=== PATIENT | male | born 1945 | race Hispanic/Latino ===

== ENCOUNTER 2017-02-07 13:29 | Inpatient (IN) | payer OTHER, MEDICARE ==
[2017-02-07 13:32] VITALS: BMI 30.4
--- NOTE | 2017-02-07 14:44 | RAD ---
HISTORY: Routine med exam COMPARISON: None available. TECHNIQUE: Chest, one view. FINDINGS: LUNGS: Right peritracheal opacity of unclear significance; considerations include tortuous vasculature however alternatives including adenopathy or goiter are not excluded. No focal consolidation. Please note that chest x-ray has limited sensitivity for the detection of pulmonary masses. PLEURA: No significant pleural effusion identified. No definite pneumothorax . CARDIOVASCULAR: Borderline cardiomegaly. OSSEOUS STRUCTURES: Degenerative changes. VISUALIZED UPPER ABDOMEN: Unremarkable. OTHER FINDINGS: None. IMPRESSION: Right peritracheal opacity of unclear significance; considerations include tortuous vasculature however alternatives including adenopathy or goiter are not excluded. No focal consolidation.
[2017-02-07 14:45] LABS: BASO # 0.03 K/mm3 (0.0-2.0); BASO % 0.3 % (0.0-3.0); EOS # 0.1 (0.0-0.7); EOS % 0.9 % (1.5-5.0); GRAN # 8.03 (1.4-6.5); GRAN % 81.1 % (50.0-68.0); HEMATOCRIT 27.3 % (42.0-52.0); LYMPH # 1.5 (1.2-3.4); LYMPH % 14.9 % (22.0-35.0); MEAN CELL VOLUME 89.2 fl (80.0-105.0); MEAN CORPUSCULAR HEMOGLOBIN 30.1 pg (25.0-35.0); MEAN CORPUSCULAR HGB CONC 33.7 g/dl (31.0-37.0); MEAN PLATELET VOLUME 11.2 fl (7.0-11.0); MONO # 0.3 (0.1-0.6); MONO % 2.8 % (1.0-6.0); RED CELL DISTRIBUTION WIDTH 14.9 % (11.5-14.5); WHITE BLOOD COUNT 9.9 10^3/ul (4.5-11.0)
[2017-02-07 14:54] LABS: ALKALINE PHOSPHATASE 54 U/L (38-126); ALT/SGPT 28 U/L (7-56); AST/SGOT 17 U/L (17-59); BILIRUBIN,TOTAL 0.4 mg/dL (0.2-1.3); BLOOD UREA NITROGEN 23 mg/dL (7-21); CALCIUM 8.7 mg/dL (8.4-10.5); CARBON DIOXIDE 23 mmol/L (21-33); CHLORIDE 108 mmol/L (98-107); GFR AFRICAN-AMERICAN > 60; GLUCOSE,RANDOM 196 mg/dL (70-110); POTASSIUM 4.2 mmol/L (3.6-5.0); SODIUM 139 mmol/L (132-148); TOTAL PROTEIN 5.7 g/dL (5.8-8.3)
[2017-02-07 14:55] LABS: PH,URINE 5.5 (4.7-8.0); URINE BILIRUBIN NEGATIVE (NEGATIVE); URINE BLOOD NEGATIVE (NEGATIVE); URINE GLUCOSE (UA) 500 mg/dL (NEGATIVE); URINE KETONE 15 mg/dL (NEGATIVE); URINE LEUKOCYTE ESTERASE NEGATIVE Leu/uL (NEGATIVE); URINE PROTEIN TRACE mg/dL (<30 mg/dL); URINE UROBILINOGEN 0.2 E.U./dL (<1 E.U./dL)
[2017-02-07 14:56] LABS: URINE APPEARANCE CLEAR (CLEAR); URINE COLOR LIGHT YELLOW (YELLOW)
[2017-02-07 15:01] LABS: URINE BACTERIA SMALL (NEG); URINE EPITHELIAL CELLS 0 - 2 /hpf (0-5); URINE RBC 0 - 2 /hpf (0-2); URINE WBC 0 - 2 /hpf (0-6)
[2017-02-07] MEDS ORDERED: Sodium Chloride 0.9% 1,000 ML IV STA (15:11)
[2017-02-07 15:19] LABS: INR 1.06 (0.93-1.08); PARTIAL THROMBOPLASTIN TIME 23.1 Seconds (25.1-36.5)
[2017-02-07 15:36] LABS: ALB/GLOB RATIO 1.4 (1.1-1.8)
--- NOTE | 2017-02-07 16:57 | CP.PCM.CON ---
History of Present Illness - History of Present Illness History of Present Illness: Critical Care Consult Note HPI:Patient is 71yo male with PMhx of colonic diverticulosis, HTN, BPH, presents with BRBPR since yesterday. Pt reports that 02/05/17 he went to [facility], with complaints of LGIB, got CAT scan of the Abd/ Pelvis and was discharged from the ER. Since then he has clots and dark blood during BMs. Pt endorses dizziness as well. Denies melena, fever, chills, cough, CP, SOB, abd pain, N/V/D, hematemesis, palpitations. No other constitutional symptoms. Pt has been off ASA since Thursday. In the ER HH 9.2, GI dr Wing consulted. Last colonoscopy Jan 2015, benign polyps. PMHx: DIverticulosis, HTN, BPH PSHx: as above Alllergies: NKDA Meds: as per EMR ROS: as above Review of Systems - Review of Systems Review of Systems: as per HPI Past Patient History - Past Social History Smoking Status: Light Smoker < 10 Cigarettes Daily - CARDIAC Hx Hypertension: Yes - NEUROLOGICAL Hx Paralysis: No - HEMATOLOGICAL/ONCOLOGICAL Hx Blood Transfusions: No Hx Blood Transfusion Reaction: No - MUSCULOSKELETAL/RHEUMATOLOGICAL Hx Musculoskeletal Disorders: No - GASTROINTESTINAL Other/Comment: Fatty liver - PSYCHIATRIC Hx Emotional Abuse: No Hx Physical Abuse: No Hx Substance Use: No - SURGICAL HISTORY Hx Surgeries: No - ANESTHESIA Hx Anesthesia Reactions: No Hx Malignant Hyperthermia: No Meds Allergies/Adverse Reactions: Allergies Allergy/AdvReac Type Severity Reaction Status Date / Time No Known Allergies Allergy Verified 02/07/17 13:46 Physical Exam - Constitutional Appears: Well, Non-toxic, No Acute Distress - Head Exam Head Exam: ATRAUMATIC, NORMAL INSPECTION - Eye Exam Eye Exam: EOMI, Normal appearance - ENT Exam ENT Exam: Mucous Membranes Moist - Respiratory Exam Respiratory Exam: Clear to Auscultation Bilateral, NORMAL BREATHING PATTERN - Cardiovascular Exam Cardiovascular Exam: REGULAR RHYTHM, +S1, +S2 - GI/Abdominal Exam GI & Abdominal Exam: Normal Bowel Sounds, Soft - Extremities Exam Extremities exam: Positive for: normal inspection - Neurological Exam Neurological exam: Alert, Oriented x3 - Psychiatric Exam Psychiatric exam: Normal Affect Results - Vital Signs Recent Vital Signs: Last Vital Signs Temp 97.8 F 02/07/17 13:58 Pulse 96 H 12/02/17 14:40 Resp 18 02/07/17 13:58 BP 123/54 L 02/07/17 15:15 Pulse Ox 97 02/07/17 14:40 - Labs Result Diagrams: 02/07/17 14:10 02/07/17 14:10 Labs: Laboratory Results - last 24 hr 02/07/17 02/07/17 02/07/17 14:10 14:10 14:10 WBC 9.9 RBC 3.06 L Hgb 9.2 L Hct 27.3 L MCV 89.2 MCH 30.1 MCHC 33.7 RDW 14.9 H Plt Count 240 MPV 11.2 H Gran % 81.1 H Lymph % (Auto) 14.9 L [place] % (Auto) 2.8 Eos % (Auto) 0.9 L Baso % (Auto) 0.3 Gran # 8.03 H Lymph # 1.5 [place] # 0.3 Eos # 0.1 Baso # 0.03 PT 11.6 INR 1.06 APTT 23.1 L Sodium 139 Potassium 4.2 Chloride 108 H Carbon Dioxide 23 Anion Gap 13 BUN 23 H Creatinine 1.0 Est GFR ( Amer) > 60 Est GFR (Non-Af Amer) > 60 Random Glucose 196 H Calcium 8.7 Total Bilirubin 0.4 AST 17 ALT 28 Alkaline Phosphatase 54 Troponin I Total Protein 5.7 L Albumin 3.4 Globulin 2.3 Albumin/Globulin Ratio 1.4 Urine Color Urine Appearance Urine pH Ur Specific [place] Urine Protein Urine Glucose (UA) Urine Ketones Urine Blood Urine Nitrate Urine Bilirubin Urine Urobilinogen Ur Leukocyte Esterase Urine RBC Urine WBC Ur Epithelial Cells Urine Bacteria Hyaline Casts Crossmatch BBK History Checked 02/07/17 02/07/17 02/07/17 14:10 14:30 16:20 WBC RBC Hgb Hct MCV MCH MCHC RDW Plt Count MPV Gran % Lymph % (Auto) [place] % (Auto) Eos % (Auto) Baso % (Auto) Gran # Lymph # [place] # Eos # Baso # PT INR APTT Sodium Potassium Chloride Carbon Dioxide Anion Gap BUN Creatinine Est GFR ( Amer) Est GFR (Non-Af Amer) Random Glucose Calcium Total Bilirubin AST ALT Alkaline Phosphatase Troponin I < 0.01 Total Protein Albumin Globulin Albumin/Globulin Ratio Urine Color Light yellow Urine Appearance Clear Urine pH 5.5 Ur Specific [place] >= 1.030 Urine Protein Trace H Urine Glucose (UA) 500 H Urine Ketones 15 H Urine Blood Negative Urine Nitrate Negative Urine Bilirubin Negative Urine Urobilinogen 0.2 Ur Leukocyte Esterase Negative Urine RBC 0 - 2 Urine WBC 0 - 2 Ur Epithelial Cells 0 - 2 Urine Bacteria Small Hyaline Casts 0 - 2 Crossmatch See Detail BBK History Checked No verified bt - Imaging and Cardiology Chest x-ray Status: Image reviewed by me, Report reviewed by me Assessment & Plan - Assessment and Plan (Free Text) Assessment: 71yo male a/w Lower GIB LGIB Anemia - currently afebrile, HD stable, comfortable on room air - Baseline HH ~13, today 9.2, receiving pRBC transfusion as per ER - GI on board Dr Wing Recommend: - supp o2 as needed - valdez culture - IVF hydration - surgery consult - serial HH monitoring - repeat HH after 1st unit of PRBC - bleeding scan - hold ASA - NPO - hold BP meds - PPI - DVT ppx, SCDs - Admit to MICU
--- NOTE | 2017-02-07 18:18 | ED PDOC ---
Arrival/HPI - General Chief Complaint: GI Problem Time Seen by Provider: 02/07/17 13:34 Historian: Patient - History of Present Illness Narrative History of Present Illness (Text): 71 y/o male w pmhx of HTN on lisinopril, on dailyt asa, bph on dutasteride, recent 02/05/17 recent ED visit to [facility] ER for rectal bleeding w/ large very bloody bowlke movement, ct (+) for sigmoid diverticuloses/anterior pericardial fluid/left sided 1/7 cm renal cyst and adrenal adenoma/ Hbg11.6 /wbc:14.4 , discharged on colace and no advisory to stop ASa , pt now presenrt with continued bloody bowel meovemnts with large bloody clots therein , culminating today in a an episdoe of near syncopal dzziness, and decreased responsiveness when ems responded to the call of his daughter. Pt deies any cp/sob/oswald/ palpitations/dusiria/nor recent fever . 02/07/17 18:15 02/07/17 18:26 Time/Duration: < week Symptom Course: Unchanged Past Medical History - Provider Review Nursing Documentation Reviewed: Yes - Travel History Have you recently traveled outside [place] w/in the past 3 mons?: No - Cardiac Hx Hypertension: Yes - Neurological Hx Paralysis: No - Hematological/Oncological Hx Blood Transfusions: No Hx Blood Transfusion Reaction: No - Musculoskeletal/Rheumatological Hx Musculoskeletal Disorders: No - Gastrointestinal Other/Comment: Fatty liver - Psychiatric Hx Emotional Abuse: No Hx Physical Abuse: No Hx Substance Use: No - Anesthesia Hx Anesthesia Reactions: No Hx Malignant Hyperthermia: No - Suicidal Assessment Feels Threatened In Home Enviroment: No Family/Social History - Physician Review Nursing Documentation Reviewed: Yes Family/Social History: No Known Family HX Smoking Status: Light Smoker < 10 Cigarettes Daily Hx Alcohol Use: No Hx Substance Use: No Allergies/Home Meds Allergies/Adverse Reactions: Allergies No Known Allergies Allergy (Verified 02/07/17 13:46) Home Medications: Home Meds Medication Instructions Recorded Confirmed Dutasteride/Tamsulosin HCl [[place] 1 cap PO DAILY 04/13/13 02/07/17 0.5 mg-0.4 mg] Lisinopril [Zestril] 5 mg PO DAILY 02/07/17 02/07/17 Simvastatin [Zocor] 40 mg PO DAILY 02/07/17 02/07/17 Review of Systems - Physician Review All systems were reviewed & negative as marked: Yes - Review of Systems Constitutional: Normal Eyes: Normal ENT: Normal Respiratory: Normal Cardiovascular: Normal Gastrointestinal: Hematochezia Genitourinary Male: Normal Musculoskeletal: Normal Skin: Normal Neurological: Normal Endocrine: Normal Hemo/Lymphatic: Normal Psychiatric: Normal Physical Exam Vital Signs Reviewed: Yes Vital Signs Temp Pulse Resp BP Pulse Ox 02/07/17 18:15 98.7 F 74 19 98/64 L 02/07/17 18:00 98.5 F 100 H 20 91/61 L 02/07/17 17:45 98.7 F 74 19 98/64 L 98 02/07/17 15:15 123/54 L 02/07/17 14:40 96 H 116/65 97 02/07/17 13:58 97.8 F 97 H 18 115/69 97 Temperature: Afebrile Blood Pressure: Normal Pulse: Regular Respiratory Rate: Normal Appearance: Positive for: Well-Appearing, Non-Toxic, Comfortable Pain Distress: None Mental Status: Positive for: Alert and Oriented X 3 - Systems Exam Head: Present: Atraumatic, Normocephalic Pupils: Present: PERRL Extroacular Muscles: Present: EOMI Conjunctiva: Present: Normal Mouth: Present: Moist Mucous Membranes Neck: Present: Normal Range of Motion Respiratory/Chest: Present: Clear to Auscultation, Good Air Exchange. No: Respiratory Distress, Accessory Muscle Use Cardiovascular: Present: Regular Rate and Rhythm, Normal S1, S2. No: Murmurs Abdomen: Present: Normal Bowel Sounds. No: Tenderness, Distention, Peritoneal Signs Rectal: Present: Gross Blood Back: Present: Normal Inspection Upper Extremity: Present: Normal Inspection. No: Cyanosis, Edema Lower Extremity: Present: Normal Inspection. No: Edema Neurological: Present: GCS=15, CN II-XII Intact, Speech Normal, Motor Func Grossly Intact, Normal Sensory Function, Normal Cerebellar Funct, Norm Deep Tendon Reflexes, Gait Normal Skin: Present: Warm, Dry, Normal Color. No: Rashes Psychiatric: Present: Alert, Oriented x 3, Normal Insight, Normal Concentration Medical Decision Making ED Course and Treatment: Gveb marked hgb drop, pt relatively hypotensive in the 110's (pt of note hasn't taken any of his medication inthe past 3 days since the 1st hemtochezic bm, Dr. Guzman was consulted as well as Dr. Otero, as well as patien t PMD Dr. Foley. Dr. Guzman advised rbc bleeding scan , transfusion with 2 packed units , icu admission and notification of general surgery service. Dr. Otero advise critical care monitoring as well, and involvemnt of IR if hct continues to drop. icu accepted patint for admisin . 02/07/17 18:33 - Lab Interpretations Lab Results: 02/07/17 14:10 02/07/17 14:10 Lab Results 02/07/17 16:45: Blood Type Confirm B POSITIVE 02/07/17 16:20: Blood Type B POSITIVE, Antibody Screen Negative, Crossmatch See Detail, BBK History Checked No verified bt 02/07/17 14:30: Urine Color Light yellow, Urine Appearance Clear, Urine pH 5.5, Ur Specific [place] >= 1.030, Urine Protein Trace H, Urine Glucose (UA) 500 H, Urine Ketones 15 H, Urine Blood Negative, Urine Nitrate Negative, Urine Bilirubin Negative, Urine Urobilinogen 0.2, Ur Leukocyte Esterase Negative, Urine RBC 0 - 2, Urine WBC 0 - 2, Ur Epithelial Cells 0 - 2, Urine Bacteria Small, Hyaline Casts 0 - 2 02/07/17 14:10: Troponin I < 0.01 02/07/17 14:10: Sodium 139, Potassium 4.2, Chloride 108 H, Carbon Dioxide 23, Anion Gap 13, BUN 23 H, Creatinine 1.0, Est GFR ( Amer) > 60, Est GFR ( Non-Af Amer) > 60, Random Glucose 196 H, Calcium 8.7, Total Bilirubin 0.4, AST 17, ALT 28, Alkaline Phosphatase 54, Total Protein 5.7 L, Albumin 3.4, Globulin 2.3, Albumin/Globulin Ratio 1.4 02/07/17 14:10: PT 11.6, INR 1.06, APTT 23.1 L 02/07/17 14:10: WBC 9.9, RBC 3.06 L, Hgb 9.2 L, Hct 27.3 L, MCV 89.2, MCH 30.1, MCHC 33.7, RDW 14.9 H, Plt Count 240, MPV 11.2 H, Gran % 81.1 H, Lymph % (Auto) 14.9 L, [place] % (Auto) 2.8, Eos % (Auto) 0.9 L, Baso % (Auto) 0.3, Gran # 8.03 H , Lymph # 1.5, [place] # 0.3, Eos # 0.1, Baso # 0.03 - RAD Interpretation Radiology Orders: 02/07/17 13:36 CHEST PORTABLE [RAD] Stat 02/07/17 16:04 GI BLEEDING SCAN W/ FLOW [NM] Stat - Medication Orders Current Medication Orders: Discontinued Medications Sodium Chloride (Sodium Chloride 0.9%) 1,000 mls @ 999 mls/hr IV .Q1H1M STA Stop: 02/07/17 16:11 Last Admin: 02/07/17 15:13 Dose: 999 mls/hr eMAR Start Stop Document 02/07/17 15:13 GMI (Rec: 02/07/17 15:14 GMI [id number]) Intravenous Solution Start Date 02/07/17 Start Time 15:14 Disposition/Present on Arrival - Present on Arrival Any Indicators Present on Arrival: No History of DVT/PE: No History of Uncontrolled Diabetes: No Urinary Catheter: No History of Decub. Ulcer: No History Surgical Site Infection Following: None - Disposition Have Diagnosis and Disposition been Completed?: Yes Diagnosis: Gastrointestinal hemorrhage Disposition: HOSPITALIZED Disposition Time: 18:37 Patient Plan: ICU Condition: GUARDED Referrals: Alvaro Akers MD [Primary Care Provider] - Follow up with primary Forms: [employer] (Arabic)
--- NOTE | 2017-02-07 19:59 | CP.PCM.CON ---
<Bruno Valencia - Last Filed: 02/07/17 19:55> History of Present Illness - History of Present Illness History of Present Illness: Surgery HPI:Patient is 71yo male with PMhx of colonic diverticulosis, colon polyps, GERD , HTN, BPH, presents with BRBPR for 3 days. Pt reports that 02/05/17 he went to [facility], with complaints of LGIB, got CAT scan of the Abd/Pelvis that showed diverticulosis, kidney cyst and large prostate and was discharged from the ER w colace. Since then he has clots and dark blood during BMs. Pt had 4 episodes of bleeding today. Pt endorses dizziness as well with near syncopal episode today. Denies melena, fever, chills, cough, CP, SOB, abd pain, N/V/D, hematemesis, palpitations. Pt has been off ASA since Thursday. Hgb at [facility] was 13 went down to 9.2. Surgery is consulted to evaluate for lower GI bleed. Last colonoscopy Jan 2015, benign polyps. PMHx: Diverticulosis, HTN, BPH PSHx:None SS: lives w family Review of Systems - Review of Systems Review of Systems: See HPI Past Patient History - Past Social History Smoking Status: Light Smoker < 10 Cigarettes Daily - CARDIAC Hx Hypertension: Yes - NEUROLOGICAL Hx Paralysis: No - HEMATOLOGICAL/ONCOLOGICAL Hx Blood Transfusions: No Hx Blood Transfusion Reaction: No - MUSCULOSKELETAL/RHEUMATOLOGICAL Hx Musculoskeletal Disorders: No - GASTROINTESTINAL Other/Comment: Fatty liver - PSYCHIATRIC Hx Emotional Abuse: No Hx Physical Abuse: No Hx Substance Use: No - SURGICAL HISTORY Hx Surgeries: No - ANESTHESIA Hx Anesthesia Reactions: No Hx Malignant Hyperthermia: No Meds Allergies/Adverse Reactions: Allergies Allergy/AdvReac Type Severity Reaction Status Date / Time No Known Allergies Allergy Verified 02/07/17 13:46 Physical Exam - Constitutional Appears: No Acute Distress - Head Exam Head Exam: ATRAUMATIC, NORMAL INSPECTION, NORMOCEPHALIC - Eye Exam Eye Exam: EOMI, Normal appearance, PERRL Pupil Exam: NORMAL ACCOMODATION, PERRL - ENT Exam ENT Exam: Mucous Membranes Moist, Normal Exam - Neck Exam Neck exam: Positive for: Normal Inspection - Respiratory Exam Respiratory Exam: Clear to Auscultation Bilateral, NORMAL BREATHING PATTERN - Cardiovascular Exam Cardiovascular Exam: REGULAR RHYTHM - GI/Abdominal Exam GI & Abdominal Exam: Normal Bowel Sounds, Soft. absent: Distended, Firm, Guarding, Hypoactive Bowel Sounds, Tenderness - Rectal Exam Rectal Exam: Bloody Stool, NORMAL INSPECTION. absent: Black Stool, Hemorrhoids , Fecal Impaction - Extremities Exam Extremities exam: Positive for: full ROM, normal capillary refill, normal inspection - Back Exam Back exam: NORMAL INSPECTION - Neurological Exam Neurological exam: Alert, CN II-XII Intact, Normal Gait, Oriented x3, Reflexes Normal - Psychiatric Exam Psychiatric exam: Normal Affect, Normal Mood - Skin Skin Exam: Dry, Intact, Normal Color, Warm Results - Vital Signs Recent Vital Signs: Last Vital Signs Temp 98.4 F 02/07/17 18:46 Pulse 82 02/07/17 18:31 Resp 20 02/07/17 18:31 BP 97/61 L 02/07/17 18:46 Pulse Ox 98 02/07/17 17:45 - Labs Result Diagrams: 02/07/17 14:10 02/07/17 14:10 Assessment & Plan - Assessment and Plan (Free Text) Assessment: GI bleed likely 2/2 diverticulosis BP 90s/60s HR 70-[address] from [facility]: Diverticulosis -f/u RBC scan -NPO -IVF -Transfuse as needed -GI on board -Protonix IV 40mg BID -Hold anticoagulation -SCD -Monitor in ICU for more GI bleed Will DW Dr. Otero <Umberto Otero - Last Filed: 02/08/17 22:24> Meds - Medications Medications: Current Medications Home Med (Home Med) 1 unit PO DIN [facility] Last Admin: 02/08/17 17:50 Dose: 1 unit Sodium Chloride (Sodium Chloride 0.9%) 1,000 mls @ 150 mls/hr IV .Q6H40M [facility] Last Admin: 02/08/17 21:13 Dose: 150 mls/hr Magnesium Citrate (Citrate Of Mag) 300 ml PO ONCE [facility] Stop: 02/09/17 23:59 Pantoprazole Sodium (Protonix Inj) 40 mg IVP Q12 [facility] Last Admin: 02/08/17 21:42 Dose: 40 mg Results - Vital Signs Recent Vital Signs: Last Vital Signs Temp 98.4 F 02/08/17 12:00 Pulse 103 H 02/08/17 21:50 Resp 21 02/08/17 21:50 BP 112/55 L 02/08/17 20:18 Pulse Ox 95 02/08/17 21:50 - Labs Result Diagrams: 02/08/17 20:25 02/08/17 05:00 Labs: Laboratory Results - last 24 hr 02/07/17 02/08/17 02/08/17 22:10 05:00 05:00 WBC 9.0 11.3 H D RBC 2.93 L 2.71 L Hgb 8.7 L 7.9 L Hct 25.5 L 23.5 L MCV 87.0 86.7 MCH 29.7 29.2 MCHC 34.1 33.6 RDW 14.9 H 14.9 H Plt Count 199 212 MPV 10.6 10.6 Sodium 142 Potassium 3.8 Chloride 111 H Carbon Dioxide 27 Anion Gap 8 L BUN 21 Creatinine 0.9 Est GFR ( Amer) > 60 Est GFR (Non-Af Amer) > 60 Random Glucose 104 Calcium 8.4 Total Bilirubin Direct Bilirubin AST ALT Alkaline Phosphatase Total Protein Albumin Globulin Albumin/Globulin Ratio 02/08/17 02/08/17 02/08/17 13:10 13:10 20:25 WBC 6.2 D 8.6 D RBC 2.89 L 2.68 L Hgb 8.7 L 8.0 L Hct 25.0 L 23.1 L MCV 86.5 86.2 MCH 30.1 29.9 MCHC 34.8 34.6 RDW 14.6 H 14.7 H Plt Count 184 182 MPV 9.7 9.7 Sodium Potassium Chloride Carbon Dioxide Anion Gap BUN Creatinine Est GFR ( Amer) Est GFR (Non-Af Amer) Random Glucose Calcium Total Bilirubin 0.6 Direct Bilirubin 0.5 H AST 18 ALT 24 Alkaline Phosphatase 45 Total Protein 5.1 L Albumin 3.0 Globulin 2.2 Albumin/Globulin Ratio 1.4 Attending/Attestation - Attestation I have personally seen and examined this patient.: Yes I have fully participated in the care of the patient.: Yes I have reviewed all pertinent clinical information: Yes Notes (Text): Pt was seen and examined at bedside Agree with above note and assessment Pt with Lower GI bleed with diverticulosis Tranfuse PRBC, FFP, Platelet Labs and radiology report reviewed GI consult IR consult for Possible embolization c.w current mx Plan d.w pt in detail. Risk and benefit explained in detail.
--- NOTE | 2017-02-07 21:40 | CARD ---
APPROVED REPORT EKG Measurement Heart [id number] <Conclusion> Normal sinus rhythm Rightward axis Incomplete right bundle branch block Borderline ECG
[2017-02-07 22:24] LABS: HEMATOCRIT 25.5 % (42.0-52.0); MEAN CORPUSCULAR HEMOGLOBIN 29.7 pg (25.0-35.0); MEAN CORPUSCULAR HGB CONC 34.1 g/dl (31.0-37.0); MEAN PLATELET VOLUME 10.6 fl (7.0-11.0); RED CELL DISTRIBUTION WIDTH 14.9 % (11.5-14.5)
[2017-02-07] MEDS ORDERED: Influenza Vaccine 60 mcg/0.5 mL SYR (4YR UP) IM ONE (22:40)
[2017-02-07] MEDS ORDERED: Pneumococcal 23-Valent Vaccine IM ONE (22:40)
[2017-02-07] MEDS: Sodium Chloride 0.9% 1,000 ML IV SCH (23:12)
[2017-02-08 05:51] LABS: MEAN CELL VOLUME 86.7 fl (80.0-105.0); MEAN CORPUSCULAR HEMOGLOBIN 29.2 pg (25.0-35.0); MEAN CORPUSCULAR HGB CONC 33.6 g/dl (31.0-37.0); MEAN PLATELET VOLUME 10.6 fl (7.0-11.0); RED CELL DISTRIBUTION WIDTH 14.9 % (11.5-14.5); WHITE BLOOD COUNT 11.3 10^3/ul (4.5-11.0)
[2017-02-08] MEDS: Sodium Chloride 0.9% 1,000 ML IV SCH ×3 (05:53→21:13)
[2017-02-08 05:59] LABS: HEMATOCRIT 23.5 % (42.0-52.0)
[2017-02-08 06:01] LABS: BLOOD UREA NITROGEN 21 mg/dL (7-21); CALCIUM 8.4 mg/dL (8.4-10.5); CARBON DIOXIDE 27 mmol/L (21-33); CHLORIDE 111 mmol/L (98-107); GFR AFRICAN-AMERICAN > 60; GLUCOSE,RANDOM 104 mg/dL (70-110); POTASSIUM 3.8 mmol/L (3.6-5.0); SODIUM 142 mmol/L (132-148)
--- NOTE | 2017-02-08 07:47 | CP.PCM.PN ---
<Bruno Valencia - Last Filed: 02/08/17 07:47> Subjective - Date & Time of Evaluation Date of Evaluation: 02/08/17 Time of Evaluation: 07:47 - Subjective Subjective: Surgery Pt s&e. Denies F/C/N/V/D/CP/SOB. Received PRBC, FFP, platelet overnight. Per nurse 1 episodes of bleeding overnight. Objective - Vital Signs/Intake and Output Vital Signs (last 24 hours): Temp Pulse Resp BP Pulse Ox 98.0 F 76 15 102/66 96 02/08/17 04:00 02/08/17 04:00 02/08/17 04:00 02/08/17 04:00 02/08/17 04:00 Intake and Output: 02/08/17 02/08/17 06:59 18:59 Intake Total 750 Balance 750 - Medications Medications: Current Medications Sodium Chloride (Sodium Chloride 0.9%) 1,000 mls @ 150 mls/hr IV .Q6H40M [facility] Last Admin: 02/08/17 05:53 Dose: 150 mls/hr Pantoprazole Sodium (Protonix Inj) 40 mg IVP Q12 [facility] Last Admin: 02/07/17 22:39 Dose: 40 mg - Labs Labs: 02/08/17 05:00 02/08/17 05:00 PT 11.6 SECONDS (9.4-12.5) 02/07/17 14:10 INR 1.06 (0.93-1.08) 02/07/17 14:10 APTT 23.1 Seconds (25.1-36.5) L 02/07/17 14:10 - Constitutional Appears: No Acute Distress - Head Exam Head Exam: ATRAUMATIC, NORMAL INSPECTION, NORMOCEPHALIC - Eye Exam Eye Exam: EOMI, Normal appearance, PERRL Pupil Exam: NORMAL ACCOMODATION, PERRL - ENT Exam ENT Exam: Mucous Membranes Moist, Normal Exam - Neck Exam Neck Exam: Full ROM, Normal Inspection. absent: Lymphadenopathy - Respiratory Exam Respiratory Exam: Clear to Ausculation Bilateral, NORMAL BREATHING PATTERN - Cardiovascular Exam Cardiovascular Exam: REGULAR RHYTHM, +S1, +S2. absent: Murmur - GI/Abdominal Exam GI & Abdominal Exam: Soft, Normal Bowel Sounds. absent: Tenderness - Rectal Exam Rectal Exam: NORMAL INSPECTION - Extremities Exam Extremities Exam: Full ROM, Normal Capillary Refill, Normal Inspection. absent : Joint Swelling, Pedal Edema - Back Exam Back Exam: NORMAL INSPECTION - Neurological Exam Neurological Exam: Alert, Awake, CN II-XII Intact, Normal Gait, Oriented x3 - Psychiatric Exam Psychiatric exam: Normal Affect, Normal Mood - Skin Skin Exam: Dry, Intact, Normal Color, Warm Assessment and Plan - Assessment and Plan (Free Text) Assessment: GI bleed likely 2/2 diverticulosis Hgb 9 -> [place] [facility] [place] Diverticulosis -f/u RBC scan -Advance diet as tolerated. -IVF -Transfuse as needed -GI on board -Protonix IV 40mg BID -Hold anticoagulation -SCD -Monitor in ICU for more GI bleed Will DW Dr. Otero <Umberto Otero - Last Filed: 02/08/17 22:29> Objective - Vital Signs/Intake and Output Vital Signs (last 24 hours): Temp Pulse Resp BP Pulse Ox 98.4 F 103 H 21 112/55 L 95 02/08/17 12:00 02/08/17 21:50 02/08/17 21:50 02/08/17 20:18 02/08/17 21:50 Intake and Output: 02/08/17 02/09/17 18:59 06:59 Intake Total 2417 Output Total 751 Balance 1666 - Medications Medications: Current Medications Home Med (Home Med) 1 unit PO DIN [facility] Last Admin: 02/08/17 17:50 Dose: 1 unit Sodium Chloride (Sodium Chloride 0.9%) 1,000 mls @ 150 mls/hr IV .Q6H40M [facility] Last Admin: 02/08/17 21:13 Dose: 150 mls/hr Magnesium Citrate (Citrate Of Mag) 300 ml PO ONCE [facility] Stop: 02/09/17 23:59 Pantoprazole Sodium (Protonix Inj) 40 mg IVP Q12 [facility] Last Admin: 02/08/17 21:42 Dose: 40 mg - Labs Labs: 02/08/17 20:25 02/08/17 05:00 PT 11.6 SECONDS (9.4-12.5) 02/07/17 14:10 INR 1.06 (0.93-1.08) 02/07/17 14:10 APTT 23.1 Seconds (25.1-36.5) L 02/07/17 14:10 Attending/Attestation - Attestation I have personally seen and examined this patient.: Yes I have fully participated in the care of the patient.: Yes I have reviewed all pertinent clinical information, including history, physical exam and plan: Yes Notes (Text): Pt was seen and examined at bedside Agree with above note and assessment Pt with Lower GI bleed, Hb stable GI consult appreciated IR consult for possible embolization Transfuse PRBC and FFP Labs reviewed. Plan d.w pt in detail. Risk and benefit explained in detail.
--- NOTE | 2017-02-08 09:45 | CON ---
REASON FOR CONSULTATION: GI bleeding. HISTORY OF PRESENT ILLNESS: This 71-year-old patient with a past medical history of diverticulosis, colon polyp, GERD, hypertension and enlarged prostate, presented with an acute onset of bright red blood per rectum. It started about 3 days ago. The patient was in [facility] on 02/05/2017. He was found to have a hemoglobin of 14 and hemodynamically stable at that time and a CT scan showed only diverticulosis with a kidney cyst and an enlarged prostate. The patient was sent home with instructions to be followed up as an outpatient. The patient has been having the episodes of bleeding since then. He felt very weak and came back with a near syncopal episode presented to the Emergency Room in [facility]. The patient had an episode of bleeding in the a.m. prior to this visit in the ER. He had some lower abdominal mild discomfort. No vomiting. No black stool. PAST MEDICAL HISTORY: Other past medical history is as above. Hypertension, dyslipidemia. PAST SURGICAL HISTORY: Denies. SOCIAL HISTORY: Smoker of less than 10 cigarettes per day. PHYSICAL EXAMINATION GENERAL: The patient is lying on the bed, not in acute distress. VITAL SIGNS: Temperature 97.9; blood pressure is 110/62; his blood pressure was 98/62 at the time of examination, respirations 20, O2 saturation 98% on room air. HEENT: Atraumatic and anicteric. Appears slightly pale. NECK: Supple. HEART: S1 and S2 heard. LUNGS: Bilateral air entry present. ABDOMEN: Soft. There is no tenderness. EXTREMITIES: No edema, no cyanosis. NEUROLOGIC: Alert, oriented. Moves all the extremities. LABORATORY DATA: Hemoglobin 9.2, hematocrit 27.3, WBC 9.9, platelet 240. Chemistry is essentially unremarkable. LFTs normal except glucose is 196. IMPRESSION: The most likely cause for this patient's bleeding is probably lower gastrointestinal bleeding. The differential diagnosis most likely cause could be diverticular bleed. The differential diagnoses should include angiodysplasia, colonic neoplasia, less likely upper gastrointestinal etiology. RECOMMENDATIONS: I would recommend: 1. Followup of the hemoglobin and hematocrit and transfuse. 2. Close monitoring in the ICU. 3. Bleeding scan. 4. Surgical consult. Would consider emergent colonoscopy based on the clinical course. Thank you very much for allowing us to participate in the care of the patient. Kovil MD [facility] # [phone]
--- NOTE | 2017-02-08 10:41 | CP.PCM.PN ---
Subjective - Date & Time of Evaluation Date of Evaluation: 02/08/17 Time of Evaluation: 08:00 - Subjective Subjective: Pt seen and examined, reports on bloody BM over night, none since. Denies abd pain, N/V/D, melena, hematemesis. Objective - Vital Signs/Intake and Output Vital Signs (last 24 hours): Temp Pulse Resp BP Pulse Ox 98.4 F 80 22 133/79 95 02/08/17 10:12 02/08/17 10:12 02/08/17 10:12 02/08/17 10:12 02/08/17 09:02 Intake and Output: 02/08/17 02/08/17 06:59 18:59 Intake Total 750 0 Balance 750 0 - Medications Medications: Current Medications Sodium Chloride (Sodium Chloride 0.9%) 1,000 mls @ 150 mls/hr IV .Q6H40M [facility] Last Admin: 02/08/17 05:53 Dose: 150 mls/hr Pantoprazole Sodium (Protonix Inj) 40 mg IVP Q12 [facility] Last Admin: 02/08/17 09:54 Dose: 40 mg - Labs Labs: 02/08/17 05:00 02/08/17 05:00 PT 11.6 SECONDS (9.4-12.5) 02/07/17 14:10 INR 1.06 (0.93-1.08) 02/07/17 14:10 APTT 23.1 Seconds (25.1-36.5) L 02/07/17 14:10 - Constitutional Appears: Well, Non-toxic, No Acute Distress - Head Exam Head Exam: ATRAUMATIC - Eye Exam Eye Exam: Normal appearance - ENT Exam ENT Exam: Mucous Membranes Moist - Respiratory Exam Respiratory Exam: Clear to Ausculation Bilateral, NORMAL BREATHING PATTERN - Cardiovascular Exam Cardiovascular Exam: REGULAR RHYTHM, +S1, +S2 - GI/Abdominal Exam GI & Abdominal Exam: Soft, Normal Bowel Sounds - Extremities Exam Extremities Exam: Full ROM, Normal Inspection - Neurological Exam Neurological Exam: Alert, Awake, Oriented x3 Assessment and Plan - Assessment and Plan (Free Text) Assessment: 71yo male a/w Lower GIB LGIB Anemia - currently afebrile, HD stable, comfortable - Baseline HH ~13, today 7.9 receiving pRBC transfusion, received platelets yesterday - GI an surgery Following Recommend: - follow up GI, surgery - transfuse 1u PRBC - may need colonoscopy based on clinical course - serial HH monitoring - hold ASA - NPO - hold BP meds - PPI - DVT ppx, SCDs - monitor in MICU
[2017-02-08 13:21] LABS: MEAN CELL VOLUME 86.5 fl (80.0-105.0); MEAN CORPUSCULAR HEMOGLOBIN 30.1 pg (25.0-35.0); MEAN CORPUSCULAR HGB CONC 34.8 g/dl (31.0-37.0); MEAN PLATELET VOLUME 9.7 fl (7.0-11.0); RED CELL DISTRIBUTION WIDTH 14.6 % (11.5-14.5); WHITE BLOOD COUNT 6.2 10^3/ul (4.5-11.0)
[2017-02-08 13:34] LABS: BILIRUBIN,TOTAL 0.6 mg/dL (0.2-1.3); TOTAL PROTEIN 5.1 g/dL (5.8-8.3)
[2017-02-08 13:42] LABS: ALB/GLOB RATIO 1.4 (1.1-1.8); BILIRUBIN,DIRECT 0.5 mg/dL (0.0-0.4)
[2017-02-08] MEDS: TAMSULOSIN PO SCH (17:50)
[2017-02-08] MEDS: DUTASTERIDE PO SCH (17:50)
[2017-02-08] MEDS ORDERED: Magnesium Citrate Oral SOL (300 ml) PO ONE (20:00)
[2017-02-08 20:35] LABS: MEAN CELL VOLUME 86.2 fl (80.0-105.0); MEAN CORPUSCULAR HEMOGLOBIN 29.9 pg (25.0-35.0); MEAN CORPUSCULAR HGB CONC 34.6 g/dl (31.0-37.0); MEAN PLATELET VOLUME 9.7 fl (7.0-11.0); RED CELL DISTRIBUTION WIDTH 14.7 % (11.5-14.5); WHITE BLOOD COUNT 8.6 10^3/ul (4.5-11.0)
[2017-02-08 20:37] LABS: HEMATOCRIT 23.1 % (42.0-52.0)
[2017-02-08] MEDS ORDERED: Sodium Chloride 0.9% 500 ML IV STA ×2 (22:56→23:10)
--- NOTE | 2017-02-09 01:04 | PN ---
DATE: 02/08/2017 SUBJECTIVE: This patient was seen and evaluated earlier today. The patient's daughter was at bedside at the time of examination. No further episodes of bleeding. The only one episode of blood he had yesterday after he was admitted to ICU. No vomiting. PHYSICAL EXAMINATION: VITAL SIGNS: Temperature is 98.4, pulse 103, and blood pressure is 112/55. HEENT: Atraumatic. Anicteric. NECK: Supple. HEART: S1 and S2 heard. LUNGS: Bilateral air entry present. ABDOMEN: Soft. There was no mass palpable. No tenderness. EXTREMITIES: No edema. No cyanosis. LABORATORY DATA: Hemoglobin is 8.7, hematocrit 25.0, WBC is 6.2, and platelets 184. Chemistry is otherwise essentially unremarkable. BUN is 21 and creatinine 0.9. IMPRESSION AND PLAN: This is a 71-year-old patient admitted with bright red blood per rectum. The patient received 2 units of packed RBC, 2 units of fresh frozen plasma, and a unit of platelets. The patient's hemoglobin has remained stable. The patient had a hemoglobin of 7.9 and had a repeat hemoglobin done. Hemoglobin today is 8.0. History of diverticulosis. History of colon polyp. Bleeding scan was negative. The patient would benefit from the colonoscopic evaluation. He will be prepared for the procedure in a split dose regimen and scheduled for tomorrow afternoon. This is a 71-year-old patient with a history of colon polyp, diverticulosis, probably admitted with gastrointestinal bleeding. The bleeding scan was negative. Most likely, the patient had a CAT scan done at [facility] which was negative except diverticulosis. The most likely cause for this patient can be diverticulosis. The other differential diagnosis would include the arteriovenous malformation and also colonic neoplasia also be considered. In view of the significant amount of bleeding, it may be reasonable to consider the patient for an esophagogastroduodenoscopy and a colonoscopy and he is scheduled for the procedure tomorrow. Thank you very much for allowing us to participate in the care of the patient. Lizzette Floyd MD
[2017-02-09] MEDS: Sodium Chloride 0.9% 1,000 ML IV SCH ×2 (03:30→19:00)
[2017-02-09 06:26] LABS: HEMATOCRIT 24.9 % (42.0-52.0); MEAN CELL VOLUME 86.2 fl (80.0-105.0); MEAN CORPUSCULAR HEMOGLOBIN 30.1 pg (25.0-35.0); MEAN CORPUSCULAR HGB CONC 34.9 g/dl (31.0-37.0); RED CELL DISTRIBUTION WIDTH 14.6 % (11.5-14.5); WHITE BLOOD COUNT 6.2 10^3/ul (4.5-11.0)
[2017-02-09 06:56] LABS: BLOOD UREA NITROGEN 16 mg/dL (7-21); CALCIUM 7.9 mg/dL (8.4-10.5); CARBON DIOXIDE 23 mmol/L (21-33); CHLORIDE 112 mmol/L (98-107); GFR AFRICAN-AMERICAN > 60; GLUCOSE,RANDOM 101 mg/dL (70-110); POTASSIUM 3.8 mmol/L (3.6-5.0); SODIUM 141 mmol/L (132-148)
[2017-02-09] MEDS ORDERED: Magnesium Citrate Oral SOL (300 ml) PO SCH (07:00)
--- NOTE | 2017-02-09 07:28 | CP.PCM.PN ---
<Bruno Valencia - Last Filed: 02/09/17 07:24> Subjective - Date & Time of Evaluation Date of Evaluation: 02/09/17 Time of Evaluation: 07:24 - Subjective Subjective: Surgery Pt s&e. Reports 5 episodes of GI bleed and weakness overnight. Denies F/C/N/V/D/ CP/SOB/syncopy/hematemesis. Possible colonoscopy today. Kept NPO Objective - Vital Signs/Intake and Output Vital Signs (last 24 hours): Temp Pulse Resp BP Pulse Ox 98.4 F 72 15 127/68 95 02/09/17 03:30 02/09/17 03:30 02/09/17 03:30 02/09/17 03:30 02/09/17 02:50 Intake and Output: 02/09/17 02/09/17 06:59 18:59 Intake Total 611 Balance 611 - Medications Medications: Current Medications Home Med (Home Med) 1 unit PO DIN [facility] Last Admin: 02/08/17 17:50 Dose: 1 unit Sodium Chloride (Sodium Chloride 0.9%) 1,000 mls @ 150 mls/hr IV .Q6H40M [facility] Last Admin: 02/09/17 03:30 Dose: 150 mls/hr Magnesium Citrate (Citrate Of Mag) 300 ml PO ONCE [facility] Stop: 02/09/17 23:59 Last Admin: 02/09/17 06:28 Dose: 300 ml Pantoprazole Sodium (Protonix Inj) 40 mg IVP Q12 [facility] Last Admin: 02/08/17 21:42 Dose: 40 mg - Labs Labs: 02/09/17 05:30 02/09/17 05:30 PT 11.6 SECONDS (9.4-12.5) 02/07/17 14:10 INR 1.06 (0.93-1.08) 02/07/17 14:10 APTT 23.1 Seconds (25.1-36.5) L 02/07/17 14:10 - Constitutional Appears: Non-toxic - Head Exam Head Exam: ATRAUMATIC, NORMAL INSPECTION, NORMOCEPHALIC - Eye Exam Eye Exam: EOMI, Normal appearance, PERRL. absent: Scleral icterus Pupil Exam: NORMAL ACCOMODATION, PERRL - ENT Exam ENT Exam: Mucous Membranes Moist, Normal Exam - Neck Exam Neck Exam: Full ROM, Normal Inspection. absent: Lymphadenopathy - Respiratory Exam Respiratory Exam: Clear to Ausculation Bilateral, NORMAL BREATHING PATTERN - Cardiovascular Exam Cardiovascular Exam: REGULAR RHYTHM, +S1, +S2. absent: Murmur - GI/Abdominal Exam GI & Abdominal Exam: Soft, Normal Bowel Sounds. absent: Distended, Firm, Guarding, Rigid, Tenderness, Hernia, Mass, Pulsatile Mass, Rebound - Extremities Exam Extremities Exam: Full ROM, Normal Capillary Refill, Normal Inspection. absent : Joint Swelling, Pedal Edema - Back Exam Back Exam: NORMAL INSPECTION - Neurological Exam Neurological Exam: Alert, Awake, CN II-XII Intact, Normal Gait, Oriented x3 - Psychiatric Exam Psychiatric exam: Normal Affect, Normal Mood - Skin Skin Exam: Dry, Intact, Pallor, Warm. absent: Mottled Assessment and Plan - Assessment and Plan (Free Text) Assessment: GI bleed likely 2/2 diverticulosis Hgb 9 -> 8 ->8.7 CT from [facility] [place]: Sigmoid Diverticulosis -NPO for colonoscopy -IVF -Transfuse as needed -GI on board -Possible IR embolization if continue to bleed after colonoscopy -Protonix IV 40mg BID -Hold anticoagulation -SCD -Monitor in ICU for more GI bleed DW Dr. Otero <Umberto Otero - Last Filed: 02/10/17 16:25> Objective - Vital Signs/Intake and Output Vital Signs (last 24 hours): Temp Pulse Resp BP Pulse Ox 99 F 114 H 30 H 145/79 94 L 02/10/17 04:00 02/10/17 11:00 02/10/17 10:50 02/10/17 09:00 02/10/17 09:50 Intake and Output: 02/10/17 02/10/17 06:59 18:59 Intake Total 2200 810 Output Total 700 750 Balance 1500 60 - Medications Medications: Current Medications Home Med (Home Med) 1 unit PO DIN [facility] Last Admin: 02/10/17 12:13 Dose: 1 unit Sodium Chloride (Sodium Chloride 0.9%) 1,000 mls @ 150 mls/hr IV .Q6H40M [facility] Last Admin: 02/09/17 19:00 Dose: 150 mls/hr Pantoprazole Sodium (Protonix Inj) 40 mg IVP Q12 [facility] Last Admin: 02/10/17 12:12 Dose: 40 mg - Labs Labs: 02/10/17 11:20 02/10/17 06:05 PT 11.9 SECONDS (9.4-12.5) 02/09/17 10:05 INR 1.08 (0.93-1.08) 02/09/17 10:05 APTT 23.1 Seconds (25.1-36.5) L 02/07/17 14:10 Attending/Attestation - Attestation I have fully participated in the care of the patient.: Yes I have reviewed all pertinent clinical information, including history, physical exam and plan: Yes Notes (Text): Pt with Lower GI bleed Colonoscopy today HB stable Pt had one bloody BM We will f.u after colonoscopy Plan d.w pt in detail.
[2017-02-09] MEDS ORDERED: Bisacodyl 5mg EC Tab PO ONE (07:41)
--- NOTE | 2017-02-09 09:41 | HP ---
HISTORY OF PRESENT ILLNESS: The patient is a 71 year old man with a past medical history of colonic diverticulosis who presented to [facility] ED for evaluation of a 4 day of history of bright red blood per rectum, passage of clots per rectum, malaise and near syncope. He was initially evaluated at [facility] for the aforementioned symptoms and was discharged from the ED after evaluation with outpatient GI follow up recommended. After discharge, however, his symptoms worsened with increase number of bloody bowel movements, development of fatigue and a near syncopal episode. Due to the near syncope, the patient opted for repeat ED evaluation. Upon arrival to [facility] ED he was noted to be afebrile and hemodynamically stable. Laboratory studies demonstrated an acute drop in hemoglobin from 13 (as per discharge paperwork from [facility]) to to 9.2. The patient was typed and cross matched and subsequently admitted to the ICU for continued monitoring of lower GI bleed and for GI and surgical evaluation. PAST MEDICAL HISTORY: As per HPI, also hypertension and BPH. PAST SURGICAL HISTORY: None. ALLERGIES: NO KNOWN DRUG ALLERGIES. MEDICATIONS: ASA 81 mg p.o. daily, Lisinopril 5 mg p.o. daily, Simvastatin 40 mg p.o. daily and Dutasteride/Tamsulosin 0.5/0.4 mg p.o. daily. FAMILY HISTORY: Significant for hypertension. No history of GI malignancy or blood dyscrasias. SOCIAL HISTORY: Patient reports an active smoking history and social alcohol use. He denies illicit drug abuse. REVIEW OF SYSTEMS: A 14-point review of systems is negative except as per HPI. PHYSICAL EXAMINATION VITAL SIGNS: Temperature 98.4, pulse 72, blood pressure 127/68, respiratory rate 16, oxygen saturation 97% on room air. GENERAL: No apparent distress. HEENT: PERRL. EOMI. No scleral icterus. Conjunctival pallor is noted. NECK: No JVD. No bruits. LUNGS: Clear to auscultation. CARDIOVASCULAR: Regular rate and rhythm. Normal S1, S2. ABDOMEN: Hyperactive bowel sounds. Soft, tender to palpation to lower abdomen with voluntary guarding. No rigidity. No tympany. EXTREMITIES: No edema. NEUROLOGIC: Awake, alert, and oriented x3. No focal motor deficits. LABORATORY DATA: WBC 6.2, hemoglobin 8.7, hematocrit 25, platelets 169. Chemistry reviewed and unremarkable. IMAGING STUDIES: 1. Chest x-ray which demonstrates a right peritracheal opacity which may represent tortous vasculature versus adenopathy or goiter. DIAGNOSTIC STUDIES: Nuclear bleeding scan with official read pending. ASSESSMENT: The patient is a 71 year old man with a past medical history of colonic diverticulosis, hypertension and benign prostatic hypertrophy who presented for evaluation of a several day history of bright red blood per rectum and passage of clots per rectum who was admitted to the ICU for management of lower GI bleed. PLAN: 1. Lower gastrointestinal bleed. Input from Dr. Floyd (Gastroenterology) and Dr. Otero (General Surgery) noted and greatly ppreciated. Continue to monitor serial H/H and transfuse as needed. Patient has pending colonoscopy later today. 2. Hypertension. Blood pressure controlled off medications. Continue to monitor hemodynamics and resume antihypertensives as needed. 3. Benign prostatic hypertrophy. Resume Dutasteride/Tamsulosin 0.5/0.4 mg p.o. daily. 4. Hyperlipidemia. Continue simvastatin 40 mg p.o. daily. 5. Prophylaxis. Continue Protonix 40 mg IV q. 12 for GI prophylaxis. Continue SCDs for DVT prophylaxis. Code Status: Full code. Angel Akers MD [email or web address]
--- NOTE | 2017-02-09 10:08 | CP.PCM.PN ---
Subjective - Date & Time of Evaluation Date of Evaluation: 02/09/17 Time of Evaluation: 00:30 - Subjective Subjective: Overnight Events: -Patient had 5 maroon colored bloody bowel movements overnight, with associated weakness and diaphoresis -His SBP dropped as low as mid 90's during these episodes -As a result, 1 liter of NS IV fluid bolus given -Also, 2units PRBC's transfused (Hgb only increased from 8.0 to 8.7 despite transfusion) -After transfusion and fluid boluses, patient's SBP normalized and symptoms improved -Call placed out to GI () this morning to update him on overnight events -Patient scheduled for colonoscopy this afternoon Objective - Vital Signs/Intake and Output Vital Signs (last 24 hours): Temp Pulse Resp BP Pulse Ox 98.6 F 87 15 149/86 95 02/09/17 10:02 02/09/17 10:02 02/09/17 10:02 02/09/17 10:02 02/09/17 02:50 Intake and Output: 02/09/17 02/09/17 06:59 18:59 Intake Total 611 Balance 611 - Medications Medications: Current Medications Home Med (Home Med) 1 unit PO DIN [facility] Last Admin: 02/08/17 17:50 Dose: 1 unit Sodium Chloride (Sodium Chloride 0.9%) 1,000 mls @ 150 mls/hr IV .Q6H40M [facility] Last Admin: 02/09/17 03:30 Dose: 150 mls/hr Magnesium Citrate (Citrate Of Mag) 300 ml PO ONCE [facility] Stop: 02/09/17 23:59 Last Admin: 02/09/17 06:28 Dose: 300 ml Pantoprazole Sodium (Protonix Inj) 40 mg IVP Q12 [facility] Last Admin: 02/09/17 10:01 Dose: 40 mg - Labs Labs: 02/09/17 05:30 02/09/17 05:30 PT 11.6 SECONDS (9.4-12.5) 02/07/17 14:10 INR 1.06 (0.93-1.08) 02/07/17 14:10 APTT 23.1 Seconds (25.1-36.5) L 02/07/17 14:10
[2017-02-09 10:16] LABS: BASO # 0.02 K/mm3 (0.0-2.0); BASO % 0.3 % (0.0-3.0); EOS # 0.1 (0.0-0.7); EOS % 1.3 % (1.5-5.0); GRAN # 4.39 (1.4-6.5); GRAN % 73.8 % (50.0-68.0); HEMATOCRIT 25.3 % (42.0-52.0); LYMPH # 1.1 (1.2-3.4); LYMPH % 18.2 % (22.0-35.0); MEAN CELL VOLUME 85.8 fl (80.0-105.0); MEAN CORPUSCULAR HEMOGLOBIN 29.5 pg (25.0-35.0); MEAN CORPUSCULAR HGB CONC 34.4 g/dl (31.0-37.0); MEAN PLATELET VOLUME 9.7 fl (7.0-11.0); MONO # 0.4 (0.1-0.6); MONO % 6.4 % (1.0-6.0); RED CELL DISTRIBUTION WIDTH 14.7 % (11.5-14.5); VENOUS BLOOD GAS BASE EXCESS 1.5 mmol/L (0.0-2.0); VENOUS BLOOD PH 7.43 (7.32-7.43)
[2017-02-09 10:24] LABS: INR 1.08 (0.93-1.08)
--- NOTE | 2017-02-09 10:58 | CP.CCUPN ---
<Santo Sparks - Last Filed: 02/09/17 14:53> CCU Subjective - Physician Review Subjective (Free Text): Critical Care Progress Note for Dr. King Patient seen and examined a bedside. Patient had 5 episodes of maroon colored BMs yesterday evening totaling about 1.5 L. He had three more this morning (530 , 600 and 900). Patient complaining of dizziness/lightheadedness, which is worse when having BM. Patient being transfused one unit PRBC this AM. He received 2 units PRBC overnight (5 total during admission). Patient currently denies any pain. Patient going for another Tagged RBC scan this morning. Denies fever/chill, chest pain, SOB, abdominal pain, nausea/vomiting. CCU Objective - Vital Signs / Intake & Output Vital Signs (Last 4 hours): Vital Signs Temp Pulse Resp BP 02/09/17 10:02 98.6 F 87 15 149/86 Intake and Output (Last 8hrs): Intake & Output 02/08/17 02/09/17 02/09/17 22:59 06:59 14:59 Intake Total 2085 611 Output Total 751 Balance 1334 611 Intake: IV 1800 Right Forearm 1800 Blood Product 285 611 Apheresis Rbc Cp2d As3 Lr 286 1st Unit [id number] Red Blood Cells Cpd As1 325 Lr Unit [id number] Output: Urine 750 Urine, Voided 750 Stool 1 Other: # Voids Urine, Voided 3 - Physical Exam Head: Positive for: Atraumatic, Normocephalic Pupils: Positive for: PERRL Extroacular Muscles: Positive for: EOMI Conjunctiva: Positive for: Other (Pale) Mouth: Positive for: Moist Mucous Membranes Neck: Positive for: Normal Range of Motion Respiratory/Chest: Positive for: Clear to Auscultation, Good Air Exchange. Negative for: Respiratory Distress, Accessory Muscle Use Cardiovascular: Positive for: Regular Rate and Rhythm, Normal S1, S2, Peripheal Pulses Present. Negative for: Murmurs, Tachycardic Abdomen: Positive for: Normal Bowel Sounds. Negative for: Tenderness, Distention, Peritoneal Signs, Rebound, Guarding Back: Positive for: Normal Inspection Upper Extremity: Positive for: Normal Inspection, Neurovascularly Intact, Capillary Refill < 2s. Negative for: Cyanosis, Edema Lower Extremity: Positive for: Normal Inspection, Neurovascularly Intact, Capillary Refill < 2 s. Negative for: Edema Neurological: Positive for: GCS=15, CN II-XII Intact, Speech Normal, Motor Func Grossly Intact, Normal Sensory Function, Normal Cerebellar Funct, Norm Deep Tendon Reflexes, Gait Normal Skin: Positive for: Warm, Dry, Pale Psychiatric: Positive for: Alert, Oriented x 3, Normal Insight, Normal Concentration - Medications Active Medications: Active Medications Generic Name Dose Route Start Last Admin Trade Name Ion PRN Reason Stop Dose Admin Home Med 1 unit 02/08/17 17:45 02/08/17 17:50 Home Med PO 1 unit DIN ANAY Administration Sodium Chloride 1,000 mls @ 150 mls/hr 02/07/17 20:15 02/09/17 03:30 Sodium Chloride 0.9% IV 150 mls/hr .[id number] ANAY Administration Magnesium Citrate 300 ml 02/09/17 07:00 02/09/17 06:28 Citrate Of Mag PO 02/09/17 23:59 300 ml ONCE ANAY Administration Pantoprazole Sodium 40 mg 02/07/17 22:00 02/09/17 10:01 Protonix Inj IVP 40 mg Q12 ANAY Administration - Patient Studies Lab Studies: Lab Studies 02/09/17 02/09/17 02/09/17 Range/Units 10:05 10:05 10:05 WBC (4.5-11.0) 10^3/ul RBC (3.5-6.1) 10^6/uL Hgb (14.0-18.0) g/dL Hct (42.0-52.0) % MCV (80.0-105.0) fl MCH (25.0-35.0) pg MCHC (31.0-37.0) g/dl RDW (11.5-14.5) % Plt Count (120.0-450.0) 10^3/uL MPV (7.0-11.0) fl Gran % (50.0-68.0) % Lymph % (Auto) (22.0-35.0) % Cloud % (Auto) (1.0-6.0) % Eos % (Auto) (1.5-5.0) % Baso % (Auto) (0.0-3.0) % Gran # (1.4-6.5) Lymph # (1.2-3.4) Cloud # (0.1-0.6) Eos # (0.0-0.7) Baso # (0.0-2.0) K/mm3 PT 11.9 (9.4-12.5) SECONDS INR 1.08 (0.93-1.08) pO2 (30-55) mm/Hg VBG pH (7.32-7.43) VBG pCO2 (40-60) VBG HCO3 (21-28) mmol/l VBG Total CO2 (22-28) mmol.L VBG O2 Sat (Calc) (40-65) % VBG Base Excess (0.0-2.0) mmol/L VBG Potassium (3.6-5.2) mmol/L Glucose (75-110) mg/dl Lactate (0.7-2.1) mmol/L FiO2 % Sodium (132-148) mmol/L Potassium (3.6-5.0) mmol/L Chloride (98-107) mmol/L Carbon Dioxide (21-33) mmol/L Anion Gap (10-20) BUN (7-21) mg/dL Creatinine (0.8-1.5) mg/dl Est GFR ( Amer) Est GFR (Non-Af Amer) Random Glucose (70-110) mg/dL Calcium (8.4-10.5) mg/dL Total Bilirubin (0.2-1.3) mg/dL Direct Bilirubin (0.0-0.4) mg/dL AST (17-59) U/L ALT (7-56) U/L Alkaline Phosphatase (38-126) U/L Troponin I 0.06 D ng/mL Total Protein (5.8-8.3) g/dL Albumin (3.0-4.8) g/dL Globulin gm/dL Albumin/Globulin Ratio (1.1-1.8) Venous Blood Potassium (3.6-5.2) mmol/L BBK History Checked Patient has bt 02/09/17 02/09/17 02/09/17 Range/Units 10:05 10:05 05:30 WBC 6.0 (4.5-11.0) 10^3/ul RBC 2.95 L (3.5-6.1) 10^6/uL Hgb 8.7 L (14.0-18.0) g/dL Hct 25.3 L (42.0-52.0) % MCV 85.8 (80.0-105.0) fl MCH 29.5 (25.0-35.0) pg MCHC 34.4 (31.0-37.0) g/dl RDW 14.7 H (11.5-14.5) % Plt Count 173 (120.0-450.0) 10^3/uL MPV 9.7 (7.0-11.0) fl Gran % 73.8 H (50.0-68.0) % Lymph % (Auto) 18.2 L (22.0-35.0) % Cloud % (Auto) 6.4 H (1.0-6.0) % Eos % (Auto) 1.3 L (1.5-5.0) % Baso % (Auto) 0.3 (0.0-3.0) % Gran # 4.39 (1.4-6.5) Lymph # 1.1 L (1.2-3.4) Cloud # 0.4 (0.1-0.6) Eos # 0.1 (0.0-0.7) Baso # 0.02 (0.0-2.0) K/mm3 PT (9.4-12.5) SECONDS INR (0.93-1.08) pO2 40 (30-55) mm/Hg VBG pH 7.43 (7.32-7.43) VBG pCO2 39.0 L (40-60) VBG HCO3 25.9 (21-28) mmol/l VBG Total CO2 27.1 (22-28) mmol.L VBG O2 Sat (Calc) 82.6 H (40-65) % VBG Base Excess 1.5 (0.0-2.0) mmol/L VBG Potassium 3.8 (3.6-5.2) mmol/L Glucose 106 (75-110) mg/dl Lactate 1.0 (0.7-2.1) mmol/L FiO2 21.0 % Sodium 141.0 141 (132-148) mmol/L Potassium 3.8 (3.6-5.0) mmol/L Chloride 113.0 H 112 H (98-107) mmol/L Carbon Dioxide 23 (21-33) mmol/L Anion Gap 10 (10-20) BUN 16 (7-21) mg/dL Creatinine 1.0 (0.8-1.5) mg/dl Est GFR ( Amer) > 60 Est GFR (Non-Af Amer) > 60 Random Glucose 101 (70-110) mg/dL Calcium 7.9 L (8.4-10.5) mg/dL Total Bilirubin (0.2-1.3) mg/dL Direct Bilirubin (0.0-0.4) mg/dL AST (17-59) U/L ALT (7-56) U/L Alkaline Phosphatase (38-126) U/L Troponin I ng/mL Total Protein (5.8-8.3) g/dL Albumin (3.0-4.8) g/dL Globulin gm/dL Albumin/Globulin Ratio (1.1-1.8) Venous Blood Potassium 3.8 (3.6-5.2) mmol/L BBK History Checked 02/09/17 02/08/17 02/08/17 Range/Units 05:30 20:25 13:10 WBC 6.2 D 8.6 D (4.5-11.0) 10^3/ul RBC 2.89 L 2.68 L (3.5-6.1) 10^6/uL Hgb 8.7 L 8.0 L (14.0-18.0) g/dL Hct 24.9 L 23.1 L (42.0-52.0) % MCV 86.2 86.2 (80.0-105.0) fl MCH 30.1 29.9 (25.0-35.0) pg MCHC 34.9 34.6 (31.0-37.0) g/dl RDW 14.6 H 14.7 H (11.5-14.5) % Plt Count 169 182 (120.0-450.0) 10^3/uL MPV 10.0 9.7 (7.0-11.0) fl Gran % (50.0-68.0) % Lymph % (Auto) (22.0-35.0) % Cloud % (Auto) (1.0-6.0) % Eos % (Auto) (1.5-5.0) % Baso % (Auto) (0.0-3.0) % Gran # (1.4-6.5) Lymph # (1.2-3.4) Cloud # (0.1-0.6) Eos # (0.0-0.7) Baso # (0.0-2.0) K/mm3 PT (9.4-12.5) SECONDS INR (0.93-1.08) pO2 (30-55) mm/Hg VBG pH (7.32-7.43) VBG pCO2 (40-60) VBG HCO3 (21-28) mmol/l VBG Total CO2 (22-28) mmol.L VBG O2 Sat (Calc) (40-65) % VBG Base Excess (0.0-2.0) mmol/L VBG Potassium (3.6-5.2) mmol/L Glucose (75-110) mg/dl Lactate (0.7-2.1) mmol/L FiO2 % Sodium (132-148) mmol/L Potassium (3.6-5.0) mmol/L Chloride (98-107) mmol/L Carbon Dioxide (21-33) mmol/L Anion Gap (10-20) BUN (7-21) mg/dL Creatinine (0.8-1.5) mg/dl Est GFR ( Amer) Est GFR (Non-Af Amer) Random Glucose (70-110) mg/dL Calcium (8.4-10.5) mg/dL Total Bilirubin 0.6 (0.2-1.3) mg/dL Direct Bilirubin 0.5 H (0.0-0.4) mg/dL AST 18 (17-59) U/L ALT 24 (7-56) U/L Alkaline Phosphatase 45 (38-126) U/L Troponin I ng/mL Total Protein 5.1 L (5.8-8.3) g/dL Albumin 3.0 (3.0-4.8) g/dL Globulin 2.2 gm/dL Albumin/Globulin Ratio 1.4 (1.1-1.8) Venous Blood Potassium (3.6-5.2) mmol/L BBK History Checked 02/08/17 Range/Units 13:10 WBC 6.2 D (4.5-11.0) 10^3/ul RBC 2.89 L (3.5-6.1) 10^6/uL Hgb 8.7 L (14.0-18.0) g/dL Hct 25.0 L (42.0-52.0) % MCV 86.5 (80.0-105.0) fl MCH 30.1 (25.0-35.0) pg MCHC 34.8 (31.0-37.0) g/dl RDW 14.6 H (11.5-14.5) % Plt Count 184 (120.0-450.0) 10^3/uL MPV 9.7 (7.0-11.0) fl Gran % (50.0-68.0) % Lymph % (Auto) (22.0-35.0) % Cloud % (Auto) (1.0-6.0) % Eos % (Auto) (1.5-5.0) % Baso % (Auto) (0.0-3.0) % Gran # (1.4-6.5) Lymph # (1.2-3.4) Cloud # (0.1-0.6) Eos # (0.0-0.7) Baso # (0.0-2.0) K/mm3 PT (9.4-12.5) SECONDS INR (0.93-1.08) pO2 (30-55) mm/Hg VBG pH (7.32-7.43) VBG pCO2 (40-60) VBG HCO3 (21-28) mmol/l VBG Total CO2 (22-28) mmol.L VBG O2 Sat (Calc) (40-65) % VBG Base Excess (0.0-2.0) mmol/L VBG Potassium (3.6-5.2) mmol/L Glucose (75-110) mg/dl Lactate (0.7-2.1) mmol/L FiO2 % Sodium (132-148) mmol/L Potassium (3.6-5.0) mmol/L Chloride (98-107) mmol/L Carbon Dioxide (21-33) mmol/L Anion Gap (10-20) BUN (7-21) mg/dL Creatinine (0.8-1.5) mg/dl Est GFR ( Amer) Est GFR (Non-Af Amer) Random Glucose (70-110) mg/dL Calcium (8.4-10.5) mg/dL Total Bilirubin (0.2-1.3) mg/dL Direct Bilirubin (0.0-0.4) mg/dL AST (17-59) U/L ALT (7-56) U/L Alkaline Phosphatase (38-126) U/L Troponin I ng/mL Total Protein (5.8-8.3) g/dL Albumin (3.0-4.8) g/dL Globulin gm/dL Albumin/Globulin Ratio (1.1-1.8) Venous Blood Potassium (3.6-5.2) mmol/L BBK History Checked Laboratory Results - last 24 hr 02/08/17 02/08/17 02/08/17 13:10 13:10 20:25 WBC 6.2 D 8.6 D RBC 2.89 L 2.68 L Hgb 8.7 L 8.0 L Hct 25.0 L 23.1 L MCV 86.5 86.2 MCH 30.1 29.9 MCHC 34.8 34.6 RDW 14.6 H 14.7 H Plt Count 184 182 MPV 9.7 9.7 Gran % Lymph % (Auto) Cloud % (Auto) Eos % (Auto) Baso % (Auto) Gran # Lymph # Cloud # Eos # Baso # PT INR pO2 VBG pH VBG pCO2 VBG HCO3 VBG Total CO2 VBG O2 Sat (Calc) VBG Base Excess VBG Potassium Glucose Lactate FiO2 Sodium Potassium Chloride Carbon Dioxide Anion Gap BUN Creatinine Est GFR ( Amer) Est GFR (Non-Af Amer) Random Glucose Calcium Total Bilirubin 0.6 Direct Bilirubin 0.5 H AST 18 ALT 24 Alkaline Phosphatase 45 Troponin I Total Protein 5.1 L Albumin 3.0 Globulin 2.2 Albumin/Globulin Ratio 1.4 Venous Blood Potassium BBK History Checked 02/09/17 02/09/17 02/09/17 05:30 05:30 10:05 WBC 6.2 D RBC 2.89 L Hgb 8.7 L Hct 24.9 L MCV 86.2 MCH 30.1 MCHC 34.9 RDW 14.6 H Plt Count 169 MPV 10.0 Gran % Lymph % (Auto) Cloud % (Auto) Eos % (Auto) Baso % (Auto) Gran # Lymph # Cloud # Eos # Baso # PT INR pO2 40 VBG pH 7.43 VBG pCO2 39.0 L VBG HCO3 25.9 VBG Total CO2 27.1 VBG O2 Sat (Calc) 82.6 H VBG Base Excess 1.5 VBG Potassium 3.8 Glucose 106 Lactate 1.0 FiO2 21.0 Sodium 141 141.0 Potassium 3.8 Chloride 112 H 113.0 H Carbon Dioxide 23 Anion Gap 10 BUN 16 Creatinine 1.0 Est GFR ( Amer) > 60 Est GFR (Non-Af Amer) > 60 Random Glucose 101 Calcium 7.9 L Total Bilirubin Direct Bilirubin AST ALT Alkaline Phosphatase Troponin I Total Protein Albumin Globulin Albumin/Globulin Ratio Venous Blood Potassium 3.8 BBK History Checked 02/09/17 02/09/17 02/09/17 10:05 10:05 10:05 WBC 6.0 RBC 2.95 L Hgb 8.7 L Hct 25.3 L MCV 85.8 MCH 29.5 MCHC 34.4 RDW 14.7 H Plt Count 173 MPV 9.7 Gran % 73.8 H Lymph % (Auto) 18.2 L Cloud % (Auto) 6.4 H Eos % (Auto) 1.3 L Baso % (Auto) 0.3 Gran # 4.39 Lymph # 1.1 L Cloud # 0.4 Eos # 0.1 Baso # 0.02 PT 11.9 INR 1.08 pO2 VBG pH VBG pCO2 VBG HCO3 VBG Total CO2 VBG O2 Sat (Calc) VBG Base Excess VBG Potassium Glucose Lactate FiO2 Sodium Potassium Chloride Carbon Dioxide Anion Gap BUN Creatinine Est GFR ( Amer) Est GFR (Non-Af Amer) Random Glucose Calcium Total Bilirubin Direct Bilirubin AST ALT Alkaline Phosphatase Troponin I 0.06 D Total Protein Albumin Globulin Albumin/Globulin Ratio Venous Blood Potassium BBK History Checked 02/09/17 10:05 WBC RBC Hgb Hct MCV MCH MCHC RDW Plt Count MPV Gran % Lymph % (Auto) Cloud % (Auto) Eos % (Auto) Baso % (Auto) Gran # Lymph # Cloud # Eos # Baso # PT INR pO2 VBG pH VBG pCO2 VBG HCO3 VBG Total CO2 VBG O2 Sat (Calc) VBG Base Excess VBG Potassium Glucose Lactate FiO2 Sodium Potassium Chloride Carbon Dioxide Anion Gap BUN Creatinine Est GFR ( Amer) Est GFR (Non-Af Amer) Random Glucose Calcium Total Bilirubin Direct Bilirubin AST ALT Alkaline Phosphatase Troponin I Total Protein Albumin Globulin Albumin/Globulin Ratio Venous Blood Potassium BBK History Checked Patient has bt Review of Systems - Review of Systems All systems: reviewed and no additional remarkable complaints except (12 point ROS negative except for stated complaints in HPI) Assessment/Plan - Assessment and Plan (Free Text) Assessment: 71 M with PMH of diverticulosis, HTN with Lower GI bleed likely secondary to diverticulosis Plan: Neuro: AAO x 3, Maintain normothermia (blood warmer for transfusions), answering questions appropriately Pulm: Maintain SaO2 > 90%, elevate head of bed at 30 degrees Cardio: Continue IV fluids to increase intravascular volume, Hold home HTN medications, Monitor HR & BP, Transfuse 1 unit PRBC (blood warmer) GI: Monitor for bloody BMs, serial abdominal exams, Protonix Q12H, Tagged RBC scan to attempt to localize bleeding, EGD/Colonoscopy today, Renal: Continue IV fluids to increase intravascular volume, Monitor Urine output Endo: Maintain euglycemia 140-180 Heme: Continue IV fluids to increase intravascular volume, Monitor HR & BP for signs of shock, Transfuse 1 unit PRBC (blood warmer) ID: afebrile, no leukocytosis <Josue King - Last Filed: 02/09/17 15:57> CCU Objective - Vital Signs / Intake & Output Vital Signs (Last 4 hours): Vital Signs Temp Pulse Resp BP Pulse Ox 02/09/17 14:00 72 16 141/53 L 96 02/09/17 13:50 72 21 96 02/09/17 13:42 85 18 96 02/09/17 13:30 75 20 97 02/09/17 13:20 75 96 02/09/17 13:10 71 96 02/09/17 13:00 83 12 150/75 98 02/09/17 12:50 74 14 97 02/09/17 12:40 71 18 97 02/09/17 12:31 75 21 154/73 H 97 02/09/17 12:30 97 02/09/17 12:20 74 16 02/09/17 12:10 75 15 02/09/17 12:09 76 36 H 150/61 02/09/17 12:00 98.6 F Intake and Output (Last 8hrs): Intake & Output 02/09/17 02/09/17 02/09/17 06:59 14:59 22:59 Intake Total 611 Balance 611 Weight 207 lb Intake: Blood Product 611 Apheresis Rbc Cp2d As3 Lr 286 1st Unit [id number] Red Blood Cells Cpd As1 325 Lr Unit [id number] - Medications Active Medications: Active Medications Generic Name Dose Route Start Last Admin Trade Name Freq PRN Reason Stop Dose Admin Home Med 1 unit 02/08/17 17:45 02/08/17 17:50 Home Med PO 1 unit DIN ANAY Administration Sodium Chloride 1,000 mls @ 150 mls/hr 02/07/17 20:15 02/09/17 03:30 Sodium Chloride 0.9% IV 150 mls/hr .[id number] ANAY Administration Magnesium Citrate 300 ml 02/09/17 07:00 02/09/17 06:28 Citrate Of Mag PO 02/09/17 23:59 300 ml ONCE ANAY Administration Pantoprazole Sodium 40 mg 02/07/17 22:00 02/09/17 10:01 Protonix Inj IVP 40 mg Q12 ANAY Administration - Patient Studies Lab Studies: Microbiology Studies 02/07/17 20:50 MRSA Culture (Admit) - Final Naris MRSA NOT DETECTED Lab Studies 02/09/17 02/09/17 02/09/17 Range/Units 10:05 10:05 10:05 WBC (4.5-11.0) 10^3/ul RBC (3.5-6.1) 10^6/uL Hgb (14.0-18.0) g/dL Hct (42.0-52.0) % MCV (80.0-105.0) fl MCH (25.0-35.0) pg MCHC (31.0-37.0) g/dl RDW (11.5-14.5) % Plt Count (120.0-450.0) 10^3/uL MPV (7.0-11.0) fl Gran % (50.0-68.0) % Lymph % (Auto) (22.0-35.0) % Cloud % (Auto) (1.0-6.0) % Eos % (Auto) (1.5-5.0) % Baso % (Auto) (0.0-3.0) % Gran # (1.4-6.5) Lymph # (1.2-3.4) Cloud # (0.1-0.6) Eos # (0.0-0.7) Baso # (0.0-2.0) K/mm3 PT 11.9 (9.4-12.5) SECONDS INR 1.08 (0.93-1.08) pO2 (30-55) mm/Hg VBG pH (7.32-7.43) VBG pCO2 (40-60) VBG HCO3 (21-28) mmol/l VBG Total CO2 (22-28) mmol.L VBG O2 Sat (Calc) (40-65) % VBG Base Excess (0.0-2.0) mmol/L VBG Potassium (3.6-5.2) mmol/L Glucose (75-110) mg/dl Lactate (0.7-2.1) mmol/L FiO2 % Sodium (132-148) mmol/L Potassium (3.6-5.0) mmol/L Chloride (98-107) mmol/L Carbon Dioxide (21-33) mmol/L Anion Gap (10-20) BUN (7-21) mg/dL Creatinine (0.8-1.5) mg/dl Est GFR ( Amer) Est GFR (Non-Af Amer) Random Glucose (70-110) mg/dL Calcium (8.4-10.5) mg/dL Troponin I 0.06 D ng/mL Venous Blood Potassium (3.6-5.2) mmol/L Blood Type B POSITIVE Antibody Screen Negative Crossmatch See Detail BBK History Checked Patient has bt 02/09/17 02/09/17 02/09/17 Range/Units 10:05 10:05 05:30 WBC 6.0 (4.5-11.0) 10^3/ul RBC 2.95 L (3.5-6.1) 10^6/uL Hgb 8.7 L (14.0-18.0) g/dL Hct 25.3 L (42.0-52.0) % MCV 85.8 (80.0-105.0) fl MCH 29.5 (25.0-35.0) pg MCHC 34.4 (31.0-37.0) g/dl RDW 14.7 H (11.5-14.5) % Plt Count 173 (120.0-450.0) 10^3/uL MPV 9.7 (7.0-11.0) fl Gran % 73.8 H (50.0-68.0) % Lymph % (Auto) 18.2 L (22.0-35.0) % Cloud % (Auto) 6.4 H (1.0-6.0) % Eos % (Auto) 1.3 L (1.5-5.0) % Baso % (Auto) 0.3 (0.0-3.0) % Gran # 4.39 (1.4-6.5) Lymph # 1.1 L (1.2-3.4) Cloud # 0.4 (0.1-0.6) Eos # 0.1 (0.0-0.7) Baso # 0.02 (0.0-2.0) K/mm3 PT (9.4-12.5) SECONDS INR (0.93-1.08) pO2 40 (30-55) mm/Hg VBG pH 7.43 (7.32-7.43) VBG pCO2 39.0 L (40-60) VBG HCO3 25.9 (21-28) mmol/l VBG Total CO2 27.1 (22-28) mmol.L VBG O2 Sat (Calc) 82.6 H (40-65) % VBG Base Excess 1.5 (0.0-2.0) mmol/L VBG Potassium 3.8 (3.6-5.2) mmol/L Glucose 106 (75-110) mg/dl Lactate 1.0 (0.7-2.1) mmol/L FiO2 21.0 % Sodium 141.0 141 (132-148) mmol/L Potassium 3.8 (3.6-5.0) mmol/L Chloride 113.0 H 112 H (98-107) mmol/L Carbon Dioxide 23 (21-33) mmol/L Anion Gap 10 (10-20) BUN 16 (7-21) mg/dL Creatinine 1.0 (0.8-1.5) mg/dl Est GFR ( Amer) > 60 Est GFR (Non-Af Amer) > 60 Random Glucose 101 (70-110) mg/dL Calcium 7.9 L (8.4-10.5) mg/dL Troponin I ng/mL Venous Blood Potassium 3.8 (3.6-5.2) mmol/L Blood Type Antibody Screen Crossmatch BBK History Checked 02/09/17 02/08/17 Range/Units 05:30 20:25 WBC 6.2 D 8.6 D (4.5-11.0) 10^3/ul RBC 2.89 L 2.68 L (3.5-6.1) 10^6/uL Hgb 8.7 L 8.0 L (14.0-18.0) g/dL Hct 24.9 L 23.1 L (42.0-52.0) % MCV 86.2 86.2 (80.0-105.0) fl MCH 30.1 29.9 (25.0-35.0) pg MCHC 34.9 34.6 (31.0-37.0) g/dl RDW 14.6 H 14.7 H (11.5-14.5) % Plt Count 169 182 (120.0-450.0) 10^3/uL MPV 10.0 9.7 (7.0-11.0) fl Gran % (50.0-68.0) % Lymph % (Auto) (22.0-35.0) % Cloud % (Auto) (1.0-6.0) % Eos % (Auto) (1.5-5.0) % Baso % (Auto) (0.0-3.0) % Gran # (1.4-6.5) Lymph # (1.2-3.4) Cloud # (0.1-0.6) Eos # (0.0-0.7) Baso # (0.0-2.0) K/mm3 PT (9.4-12.5) SECONDS INR (0.93-1.08) pO2 (30-55) mm/Hg VBG pH (7.32-7.43) VBG pCO2 (40-60) VBG HCO3 (21-28) mmol/l VBG Total CO2 (22-28) mmol.L VBG O2 Sat (Calc) (40-65) % VBG Base Excess (0.0-2.0) mmol/L VBG Potassium (3.6-5.2) mmol/L Glucose (75-110) mg/dl Lactate (0.7-2.1) mmol/L FiO2 % Sodium (132-148) mmol/L Potassium (3.6-5.0) mmol/L Chloride (98-107) mmol/L Carbon Dioxide (21-33) mmol/L Anion Gap (10-20) BUN (7-21) mg/dL Creatinine (0.8-1.5) mg/dl Est GFR ( Amer) Est GFR (Non-Af Amer) Random Glucose (70-110) mg/dL Calcium (8.4-10.5) mg/dL Troponin I ng/mL Venous Blood Potassium (3.6-5.2) mmol/L Blood Type Antibody Screen Crossmatch BBK History Checked Laboratory Results - last 24 hr 02/08/17 02/09/17 02/09/17 20:25 05:30 05:30 WBC 8.6 D 6.2 D RBC 2.68 L 2.89 L Hgb 8.0 L 8.7 L Hct 23.1 L 24.9 L MCV 86.2 86.2 MCH 29.9 30.1 MCHC 34.6 34.9 RDW 14.7 H 14.6 H Plt Count 182 169 MPV 9.7 10.0 Gran % Lymph % (Auto) Cloud % (Auto) Eos % (Auto) Baso % (Auto) Gran # Lymph # Cloud # Eos # Baso # PT INR pO2 VBG pH VBG pCO2 VBG HCO3 VBG Total CO2 VBG O2 Sat (Calc) VBG Base Excess VBG Potassium Glucose Lactate FiO2 Sodium 141 Potassium 3.8 Chloride 112 H Carbon Dioxide 23 Anion Gap 10 BUN 16 Creatinine 1.0 Est GFR ( Amer) > 60 Est GFR (Non-Af Amer) > 60 Random Glucose 101 Calcium 7.9 L Troponin I Venous Blood Potassium Blood Type Antibody Screen Crossmatch BBK History Checked 02/09/17 02/09/17 02/09/17 10:05 10:05 10:05 WBC 6.0 RBC 2.95 L Hgb 8.7 L Hct 25.3 L MCV 85.8 MCH 29.5 MCHC 34.4 RDW 14.7 H Plt Count 173 MPV 9.7 Gran % 73.8 H Lymph % (Auto) 18.2 L Cloud % (Auto) 6.4 H Eos % (Auto) 1.3 L Baso % (Auto) 0.3 Gran # 4.39 Lymph # 1.1 L Cloud # 0.4 Eos # 0.1 Baso # 0.02 PT INR pO2 40 VBG pH 7.43 VBG pCO2 39.0 L VBG HCO3 25.9 VBG Total CO2 27.1 VBG O2 Sat (Calc) 82.6 H VBG Base Excess 1.5 VBG Potassium 3.8 Glucose 106 Lactate 1.0 FiO2 21.0 Sodium 141.0 Potassium Chloride 113.0 H Carbon Dioxide Anion Gap BUN Creatinine Est GFR ( Amer) Est GFR (Non-Af Amer) Random Glucose Calcium Troponin I 0.06 D Venous Blood Potassium 3.8 Blood Type Antibody Screen Crossmatch BBK History Checked 02/09/17 02/09/17 10:05 10:05 WBC RBC Hgb Hct MCV MCH MCHC RDW Plt Count MPV Gran % Lymph % (Auto) Cloud % (Auto) Eos % (Auto) Baso % (Auto) Gran # Lymph # Cloud # Eos # Baso # PT 11.9 INR 1.08 pO2 VBG pH VBG pCO2 VBG HCO3 VBG Total CO2 VBG O2 Sat (Calc) VBG Base Excess VBG Potassium Glucose Lactate FiO2 Sodium Potassium Chloride Carbon Dioxide Anion Gap BUN Creatinine Est GFR ( Amer) Est GFR (Non-Af Amer) Random Glucose Calcium Troponin I Venous Blood Potassium Blood Type B POSITIVE Antibody Screen Negative Crossmatch See Detail BBK History Checked Patient has bt Attending/Attestation - Attestation I have personally seen and examined this patient.: Yes I have fully participated in the care of the patient.: Yes I have reviewed all pertinent clinical information: Yes Notes (Text): 02/09/17 15:55 71 yo male with LGIB due to diverticulosis. Not in shock, no end-organ dysfunction, no lactic acidosis and no troponin leak, alert and oriented x 3. Bleeding scan neg x 2, s/p 6 units of blood. surgical service is on standby. repeated inr wnl, plats>100 (s/p 1 bag of platelets). mechanical dvt prophylaxis , GI prophylaxis. scheduled for endo today ccm time 40 min
--- NOTE | 2017-02-09 11:42 | NM ---
PROCEDURE: Nuclear medicine gastrointestinal bleeding scan. HISTORY: lower Gi bleed COMPARISON: None available. TECHNIQUE: 4 cc of patient blood was withdrawn and mixed with 30.0 MCi of technetium ultra tagged. Images of the abdomen and pelvis were obtained in the anterior and posterior projection at 1 min intervals over a period of 45 min. FINDINGS: No abnormal extravasation of tracer was observed throughout the exam to indicate active bleeding within or outside the gastrointestinal tract. Physiologic activity was seen in the heart, liver, spleen and blood vessels. IMPRESSION: No evidence of active gastrointestinal bleeding. Concordant results (preliminary interpretation) provided by [facility]. Procedure Completed: 21:46. Preliminary ([facility]) Report: Dictated and Authenticated: 22:15 Final Interpretation: 11:40. February 09, 2017.
--- NOTE | 2017-02-09 12:53 | NM ---
PROCEDURE: Nuclear medicine gastrointestinal bleeding scan. HISTORY: rectal bleed COMPARISON: 02/07/2017 TECHNIQUE: 4 cc of patient blood was withdrawn and mixed with 21 0.4 mCi of technetium ultra tagged. Images of the abdomen and pelvis were obtained in the anterior projection at 1 min intervals over a period of 45 min. FINDINGS: No abnormal extravasation of tracer was observed throughout the exam to indicate active bleeding within or outside the gastrointestinal tract. Physiologic activity was seen in the heart, liver, spleen and blood vessels. There is also increased activity in the penis IMPRESSION: No evidence of active gastrointestinal bleeding.
[2017-02-09] MEDS ORDERED: Propofol 10 mg/ml Inj (20 ML) ONE (16:22)
[2017-02-09] MEDS ORDERED: Etomidate 20 mg/10ml Inj IV ONE (16:23)
[2017-02-09] MEDS: TAMSULOSIN PO SCH ×2 (18:05→20:03)
[2017-02-09] MEDS: DUTASTERIDE PO SCH ×2 (18:05→20:03)
[2017-02-09 18:36] LABS: MEAN CELL VOLUME 86.1 fl (80.0-105.0); MEAN CORPUSCULAR HEMOGLOBIN 29.5 pg (25.0-35.0); MEAN CORPUSCULAR HGB CONC 34.2 g/dl (31.0-37.0); MEAN PLATELET VOLUME 10.5 fl (7.0-11.0); RED CELL DISTRIBUTION WIDTH 15.2 % (11.5-14.5); WHITE BLOOD COUNT 6.2 10^3/ul (4.5-11.0)
[2017-02-10 02:26] LABS: HEMATOCRIT 24.5 % (42.0-52.0); MEAN CELL VOLUME 86.6 fl (80.0-105.0); MEAN CORPUSCULAR HEMOGLOBIN 29.7 pg (25.0-35.0); MEAN CORPUSCULAR HGB CONC 34.3 g/dl (31.0-37.0); MEAN PLATELET VOLUME 10.2 fl (7.0-11.0); RED CELL DISTRIBUTION WIDTH 15.3 % (11.5-14.5); WHITE BLOOD COUNT 5.5 10^3/ul (4.5-11.0)
[2017-02-10 06:43] LABS: BASO # 0.03 K/mm3 (0.0-2.0); BASO % 0.6 % (0.0-3.0); EOS # 0.2 (0.0-0.7); EOS % 3.9 % (1.5-5.0); GRAN # 3.76 (1.4-6.5); GRAN % 69.8 % (50.0-68.0); HEMATOCRIT 25.6 % (42.0-52.0); LYMPH # 0.9 (1.2-3.4); LYMPH % 17.4 % (22.0-35.0); MEAN CELL VOLUME 86.2 fl (80.0-105.0); MEAN CORPUSCULAR HEMOGLOBIN 29.6 pg (25.0-35.0); MEAN CORPUSCULAR HGB CONC 34.4 g/dl (31.0-37.0); MONO # 0.5 (0.1-0.6); MONO % 8.3 % (1.0-6.0); RED CELL DISTRIBUTION WIDTH 15.3 % (11.5-14.5); WHITE BLOOD COUNT 5.4 10^3/ul (4.5-11.0)
[2017-02-10 07:10] LABS: ALB/GLOB RATIO 1.4 (1.1-1.8); ALKALINE PHOSPHATASE 39 U/L (38-126); ALT/SGPT 34 U/L (7-56); AST/SGOT 25 U/L (17-59); BILIRUBIN,TOTAL 0.4 mg/dL (0.2-1.3); BLOOD UREA NITROGEN 8 mg/dL (7-21); CALCIUM 7.9 mg/dL (8.4-10.5); CARBON DIOXIDE 26 mmol/L (21-33); CHLORIDE 109 mmol/L (98-107); GFR AFRICAN-AMERICAN > 60; GLUCOSE,RANDOM 80 mg/dL (70-110); POTASSIUM 3.8 mmol/L (3.6-5.0); SODIUM 139 mmol/L (132-148); TOTAL PROTEIN 4.8 g/dL (5.8-8.3)
--- NOTE | 2017-02-10 08:03 | CP.PCM.PN ---
<Bruno Valencia - Last Filed: 02/10/17 08:36> Subjective - Date & Time of Evaluation Date of Evaluation: 02/10/17 Time of Evaluation: 08:00 - Subjective Subjective: Surgery Pt s&e. Reports no bloody BM overnight. Objective - Vital Signs/Intake and Output Vital Signs (last 24 hours): Temp Pulse Resp BP Pulse Ox 99 F 61 16 122/60 95 02/10/17 04:00 02/10/17 05:10 02/10/17 05:10 02/10/17 05:01 02/10/17 05:10 Intake and Output: 02/10/17 02/10/17 06:59 18:59 Intake Total 2200 Output Total 700 Balance 1500 - Medications Medications: Current Medications Home Med (Home Med) 1 unit PO DIN [facility] Last Admin: 02/09/17 20:03 Dose: 1 unit Sodium Chloride (Sodium Chloride 0.9%) 1,000 mls @ 150 mls/hr IV .Q6H40M [facility] Last Admin: 02/09/17 19:00 Dose: 150 mls/hr Pantoprazole Sodium (Protonix Inj) 40 mg IVP Q12 [facility] Last Admin: 02/09/17 20:59 Dose: 40 mg - Labs Labs: 02/10/17 06:05 02/10/17 06:05 PT 11.9 SECONDS (9.4-12.5) 02/09/17 10:05 INR 1.08 (0.93-1.08) 02/09/17 10:05 APTT 23.1 Seconds (25.1-36.5) L 02/07/17 14:10 - Constitutional Appears: Non-toxic - Head Exam Head Exam: ATRAUMATIC, NORMAL INSPECTION, NORMOCEPHALIC - Eye Exam Eye Exam: EOMI, Normal appearance, PERRL Pupil Exam: NORMAL ACCOMODATION, PERRL - ENT Exam ENT Exam: Mucous Membranes Moist, Normal Exam - Neck Exam Neck Exam: Full ROM, Normal Inspection. absent: Lymphadenopathy - Respiratory Exam Respiratory Exam: Clear to Ausculation Bilateral, NORMAL BREATHING PATTERN - Cardiovascular Exam Cardiovascular Exam: REGULAR RHYTHM, +S1, +S2. absent: Murmur - GI/Abdominal Exam GI & Abdominal Exam: Soft, Normal Bowel Sounds. absent: Tenderness - Rectal Exam Rectal Exam: NORMAL INSPECTION - Exam Speculum exam: absent: Cervical Discharge, Erythema, Foreign Body, Laceration, Tissue, Vaginal Bleeding, Vaginal Discharge - Extremities Exam Extremities Exam: Full ROM, Normal Capillary Refill, Normal Inspection. absent : Joint Swelling, Pedal Edema - Back Exam Back Exam: NORMAL INSPECTION - Neurological Exam Neurological Exam: Alert, Awake, CN II-XII Intact, Normal Gait, Oriented x3 - Psychiatric Exam Psychiatric exam: Normal Affect, Normal Mood - Skin Skin Exam: Dry, Intact, Normal Color, Warm Assessment and Plan - Assessment and Plan (Free Text) Assessment: GI bleed likely 2/2 diverticulosis Hgb 9 -> 8 ->8.7 CT from [facility]: Sigmoid Diverticulosis Colonoscopy: no active bleeding. diverticulosis, internal hemorrhoids, polyps. -IVF -Transfuse as needed -GI on board -Possible IR embolization if continue to bleed. -Protonix IV 40mg BID -Hold anticoagulation -SCD -Monitor in ICU for more GI bleed Will DW Dr. Otero <Umberto Otero - Last Filed: 02/10/17 16:46> Objective - Vital Signs/Intake and Output Vital Signs (last 24 hours): Temp Pulse Resp BP Pulse Ox 99.1 F 74 18 122/68 97 02/10/17 16:00 02/10/17 16:00 02/10/17 16:00 02/10/17 16:00 02/10/17 16:00 Intake and Output: 02/10/17 02/10/17 06:59 18:59 Intake Total 2200 810 Output Total 700 750 Balance 1500 60 - Medications Medications: Current Medications Home Med (Home Med) 1 unit PO DIN [facility] Last Admin: 02/10/17 12:13 Dose: 1 unit Sodium Chloride (Sodium Chloride 0.9%) 1,000 mls @ 150 mls/hr IV .Q6H40M [facility] Last Admin: 02/09/17 19:00 Dose: 150 mls/hr Pantoprazole Sodium (Protonix Inj) 40 mg IVP Q12 [facility] Last Admin: 02/10/17 12:12 Dose: 40 mg - Labs Labs: 02/10/17 11:20 02/10/17 06:05 PT 11.9 SECONDS (9.4-12.5) 02/09/17 10:05 INR 1.08 (0.93-1.08) 02/09/17 10:05 APTT 23.1 Seconds (25.1-36.5) L 02/07/17 14:10 Attending/Attestation - Attestation I have personally seen and examined this patient.: Yes I have fully participated in the care of the patient.: Yes I have reviewed all pertinent clinical information, including history, physical exam and plan: Yes Notes (Text): Pt was seen and examined at bedside Agree with above note and assessment Pt with lower GI bleed with diverticulosis Colonoscopy suggestive of no active bleeding C/w current mx Advance diet to full liquid diet Plan d.w Dr. De La Rosa Plan d.w pt in detail Risk and benefit explained in detail.
--- NOTE | 2017-02-10 09:14 | CP.PCM.PN ---
Subjective - Date & Time of Evaluation Date of Evaluation: 02/10/17 Time of Evaluation: 09:10 - Subjective Subjective: CRITICAL CARE PROGRESS NOTE Pt seen and examined, reports NO bloody BMs overnight, doing well, tolerating breakfast. No major complaints. Had EGD/Colonoscopy done yesterday, tolerated procedure well. Objective - Vital Signs/Intake and Output Vital Signs (last 24 hours): Temp Pulse Resp BP Pulse Ox 99 F 61 16 122/60 95 02/10/17 04:00 02/10/17 05:10 02/10/17 05:10 02/10/17 05:01 02/10/17 05:10 Intake and Output: 02/10/17 02/10/17 06:59 18:59 Intake Total 2200 Output Total 700 Balance 1500 - Medications Medications: Current Medications Home Med (Home Med) 1 unit PO DIN [facility] 234 BEDS AT [facility] Last Admin: 02/09/17 20:03 Dose: 1 unit Sodium Chloride (Sodium Chloride 0.9%) 1,000 mls @ 150 mls/hr IV .Q6H40M COUNTS INCLUDE 234 BEDS AT [facility] Last Admin: 02/09/17 19:00 Dose: 150 mls/hr Pantoprazole Sodium (Protonix Inj) 40 mg IVP Q12 [facility]CLUDE 234 BEDS AT [facility] Last Admin: 02/09/17 20:59 Dose: 40 mg - Labs Labs: 02/10/17 06:05 02/10/17 06:05 PT 11.9 SECONDS (9.4-12.5) 02/09/17 10:05 INR 1.08 (0.93-1.08) 02/09/17 10:05 APTT 23.1 Seconds (25.1-36.5) L 02/07/17 14:10 - Constitutional Appears: Well, Non-toxic, No Acute Distress - Head Exam Head Exam: NORMAL INSPECTION - Eye Exam Eye Exam: EOMI, Normal appearance - ENT Exam ENT Exam: Mucous Membranes Moist - Respiratory Exam Respiratory Exam: Clear to Ausculation Bilateral, NORMAL BREATHING PATTERN - Cardiovascular Exam Cardiovascular Exam: REGULAR RHYTHM, +S1, +S2 - GI/Abdominal Exam GI & Abdominal Exam: Soft, Normal Bowel Sounds - Extremities Exam Extremities Exam: Full ROM, Normal Inspection - Neurological Exam Neurological Exam: Alert, Awake, Oriented x3 Assessment and Plan - Assessment and Plan (Free Text) Assessment: 71yo male a/w Lower GIB LGIB Anemia - currently afebrile, HD stable, comfortable - HH stable, 8.8, platelets stable, no active clinical bleeding - GI an surgery Following - had Colonoscopy done yesterday-->diverticulosis, no active bleeding Recommend: - monitor HH - hold ASA - resumed diet - hold BP meds - follow up GI/Surgery - PPI - DVT ppx, SCDs - transfer to floor, stable
--- NOTE | 2017-02-10 10:33 | PN ---
SUBJECTIVE: The patient was seen and examined at the bedside in the ICU. No acute events overnight. The patient is s/p colonoscopy and EGD with Dr. Floyd for evaluation of his presentation with lower GI bleed and symptomatic anemia. Per discussion with the patient and his daughter the colonoscopy reportedly showed scattered diverticuli and three small polyps with no evidence of active bleed and the EGD demonstrated mild gastritis with no evidence of active bleed. The patient has furthermore not had any bowel movements since yesterday and reports resolution of his abdominal discomfort and dyspepsia. He has been started on a liquid diet and is eager to begin eating. Otherwise, he offers no complaints. OBJECTIVE: VITAL SIGNS: Temperature 97.6, pulse 61, blood pressure 122/60, respiratory rate 18, and oxygen saturation 95% on 2 L nasal cannula. GENERAL: No apparent distress. HEENT: PERRL. EOMI. No scleral icterus. Mild conjunctival pallor is noted. NECK: No JVD. No bruits. LUNGS: Clear to auscultation. CARDIOVASCULAR: Regular rate and rhythm. Normal S1 and S2. ABDOMEN: Normoactive bowel sounds. Soft, nontender, and nondistended. No rigidity. No tympany. EXTREMITIES: No edema. NEUROLOGIC: Awake, alert, and oriented x3. No focal motor deficits. LABORATORY DATA: WBC is 5.4, hemoglobin 8.8, hematocrit 26, and platelets 180. Chemistry reviewed and unremarkable. ASSESSMENT: The patient is a 71 year old man with a past medical history of colonic diverticulosis, hypertension and benign prostatic hypertrophy who presented for evaluation of several day history of bright red blood per rectum and passage of clots per rectum who was admitted to the ICU for management of lower gastrointestinal bleed and symptomatic anemia who is now s/p colonoscopy and EGD with no evidence of active bleed who is now demonstrating slow clinical improvement. PLAN: 1. Lower GI bleed. Input from Dr. Floyd noted and greatly appreciated and findings of EGD and colonoscopy were unremarkable. This patient denied any further bowel movements or overt blood loss over the prior 24 hours. He has been started on a liquid diet as per Dr. Floyd. We will continue to monitor. 2. Symptomatic anemia secondary to lower GI bleed. Labs demonstrate stable H/ H. Continue to monitor CBC daily and transfuse as needed. 3. Hypertension. Blood pressure controlled, off medications. Continue to monitor hemodynamics and resume antihypertensives as needed. 4. BPH. Continue dutasteride/tamsulosin 0.5/0.4 mg p.o. daily. 5. Hyperlipidemia. Continue simvastatin 40 mg p.o. daily. 6. Prophylaxis. Continue Protonix 40 mg IV q.12 hours for GI prophylaxis. Continue SCDs for DVT prophylaxis. CODE STATUS: FULL CODE. Angel Akers MD MTDD
[2017-02-10 11:27] LABS: HEMATOCRIT 27.7 % (42.0-52.0); MEAN CORPUSCULAR HEMOGLOBIN 29.5 pg (25.0-35.0); MEAN CORPUSCULAR HGB CONC 34.3 g/dl (31.0-37.0); MEAN PLATELET VOLUME 9.9 fl (7.0-11.0); RED CELL DISTRIBUTION WIDTH 15.1 % (11.5-14.5); WHITE BLOOD COUNT 6.3 10^3/ul (4.5-11.0)
[2017-02-10] MEDS: DUTASTERIDE PO SCH (12:13)
[2017-02-10] MEDS: TAMSULOSIN PO SCH (12:13)
--- NOTE | 2017-02-10 13:42 | CP.PCM.PN ---
<Yoli Burgess - Last Filed: 02/10/17 13:42> Subjective - Date & Time of Evaluation Date of Evaluation: 02/10/17 Time of Evaluation: 09:55 - Subjective Subjective: S&E at bedside, chart reviewed, had EGD/colon yesterday, no reports of overt GI bleeding, patient tolerating clear liquids, denies N/V or abdominal pain, no BM. Denies SOB or chest pain. Objective - Vital Signs/Intake and Output Vital Signs (last 24 hours): Temp Pulse Resp BP Pulse Ox 99 F 114 H 30 H 145/79 94 L 02/10/17 04:00 02/10/17 11:00 02/10/17 10:50 02/10/17 09:00 02/10/17 09:50 Intake and Output: 02/10/17 02/10/17 06:59 18:59 Intake Total 2200 810 Output Total 700 750 Balance 1500 60 - Medications Medications: Current Medications Home Med (Home Med) 1 unit PO DIN [facility] Last Admin: 02/10/17 12:13 Dose: 1 unit Sodium Chloride (Sodium Chloride 0.9%) 1,000 mls @ 150 mls/hr IV .Q6H40M [facility] Last Admin: 02/09/17 19:00 Dose: 150 mls/hr Pantoprazole Sodium (Protonix Inj) 40 mg IVP Q12 [facility] Last Admin: 02/10/17 12:12 Dose: 40 mg - Labs Labs: 02/10/17 11:20 02/10/17 06:05 PT 11.9 SECONDS (9.4-12.5) 02/09/17 10:05 INR 1.08 (0.93-1.08) 02/09/17 10:05 APTT 23.1 Seconds (25.1-36.5) L 02/07/17 14:10 - Constitutional Appears: No Acute Distress - Head Exam Head Exam: NORMOCEPHALIC - Eye Exam Eye Exam: Normal appearance. absent: Scleral icterus - ENT Exam ENT Exam: Mucous Membranes Moist - Neck Exam Neck Exam: Normal Inspection - Respiratory Exam Respiratory Exam: NORMAL BREATHING PATTERN. absent: Respiratory Distress - Cardiovascular Exam Cardiovascular Exam: +S1, +S2 - GI/Abdominal Exam GI & Abdominal Exam: Soft, Normal Bowel Sounds. absent: Guarding, Tenderness, Rebound - Extremities Exam Extremities Exam: absent: Calf Tenderness, Pedal Edema - Neurological Exam Neurological Exam: Alert, Awake, Oriented x3 - Skin Skin Exam: Dry, Warm Assessment and Plan - Assessment and Plan (Free Text) Assessment: ASSESSMENT: GI Bleed s/p EGD /Colon: multiple colon polyps, not removed secondary to clots noted throughout colon, diverticulosis, no diverticlar bleeding seen, chronic gastritis, LA grade A esophagitis, duodenitits Anemia PLAN: if tolerate full liquids can advance diet to soft low residual diet monitor h/h and for GI bleed continue PPI BID on DVT prophylaxis willl need repeat colon for multiple polyps that were not removed in view of clots found throughout colon as per ICU team Seen and discussed w/ Dr. Floyd. <Lizzette Floyd V - Last Filed: 02/10/17 21:33> Objective - Vital Signs/Intake and Output Vital Signs (last 24 hours): Temp Pulse Resp BP Pulse Ox 99.1 F 74 18 122/68 97 02/10/17 16:00 02/10/17 16:00 02/10/17 16:00 02/10/17 16:00 02/10/17 16:00 Intake and Output: 02/10/17 02/11/17 18:59 06:59 Intake Total 810 Output Total 750 Balance 60 - Medications Medications: Current Medications Home Med (Home Med) 1 unit PO DIN [facility] Last Admin: 02/10/17 12:13 Dose: 1 unit Sodium Chloride (Sodium Chloride 0.9%) 1,000 mls @ 150 mls/hr IV .Q6H40M [facility] Last Admin: 02/09/17 19:00 Dose: 150 mls/hr Pantoprazole Sodium (Protonix Inj) 40 mg IVP Q12 [facility] Last Admin: 02/10/17 12:12 Dose: 40 mg - Labs Labs: 02/10/17 11:20 02/10/17 06:05 PT 11.9 SECONDS (9.4-12.5) 02/09/17 10:05 INR 1.08 (0.93-1.08) 02/09/17 10:05 APTT 23.1 Seconds (25.1-36.5) L 02/07/17 14:10 Attending/Attestation - Attestation I have personally seen and examined this patient.: Yes I have fully participated in the care of the patient.: Yes I have reviewed all pertinent clinical information, including history, physical exam and plan: Yes Notes (Text): This is an addendum to GI progress report dictated by Yoli Burgess APN.The patient was seen and examined earlier. Medical records, lab studies, imagings were reviewed. Last 24 hours events reviewed. Agreed with the above treatment plan as outlined in Yoli Burgess APN's notes the with the addition of the following no bowel movement yet Hemoglobin stable Tolerating diet Patient's daughter was at bedside at the time of examination Discussed with the patient and the family at length regarding the endoscopic findings and a follow-up recommendations 02/10/17 21:32
[2017-02-10] MEDS: Sodium Chloride 0.9% 1,000 ML IV SCH ×2 (22:10→22:12)
[2017-02-11] MEDS: Sodium Chloride 0.9% 1,000 ML IV SCH (05:34)
[2017-02-11 06:29] LABS: BASO # 0.02 K/mm3 (0.0-2.0); BASO % 0.4 % (0.0-3.0); EOS # 0.2 (0.0-0.7); EOS % 4.1 % (1.5-5.0); GRAN # 3.2 (1.4-6.5); GRAN % 65.7 % (50.0-68.0); HEMATOCRIT 26.9 % (42.0-52.0); LYMPH % 19.5 % (22.0-35.0); MEAN CELL VOLUME 86.8 fl (80.0-105.0); MEAN CORPUSCULAR HEMOGLOBIN 29.4 pg (25.0-35.0); MEAN CORPUSCULAR HGB CONC 33.8 g/dl (31.0-37.0); MEAN PLATELET VOLUME 10.5 fl (7.0-11.0); MONO # 0.5 (0.1-0.6); MONO % 10.3 % (1.0-6.0); RED CELL DISTRIBUTION WIDTH 15.2 % (11.5-14.5); WHITE BLOOD COUNT 4.9 10^3/ul (4.5-11.0)
[2017-02-11 07:01] LABS: ALB/GLOB RATIO 1.4 (1.1-1.8); ALKALINE PHOSPHATASE 44 U/L (38-126); ALT/SGPT 29 U/L (7-56); AST/SGOT 29 U/L (17-59); BILIRUBIN,TOTAL 0.4 mg/dL (0.2-1.3); BLOOD UREA NITROGEN 8 mg/dL (7-21); CALCIUM 8.7 mg/dL (8.4-10.5); CARBON DIOXIDE 26 mmol/L (21-33); CHLORIDE 107 mmol/L (98-107); GFR AFRICAN-AMERICAN > 60; GLUCOSE,RANDOM 111 mg/dL (70-110); POTASSIUM 3.8 mmol/L (3.6-5.0); SODIUM 139 mmol/L (132-148); TOTAL PROTEIN 5.2 g/dL (5.8-8.3)
[2017-02-11] MEDS ORDERED: Home Med 1 UNIT PO SCH (10:27)
--- NOTE | 2017-02-11 10:56 | CP.PCM.PN ---
<Yoli Burgess - Last Filed: 02/11/17 10:55> Subjective - Date & Time of Evaluation Date of Evaluation: 02/11/17 Time of Evaluation: 10:30 - Subjective Subjective: S&E at bedside, chart reviewed, no acute overnight events. No bleeding reported , no BM yet. Denies N/V or abdominal pain. Daughter at beside. Objective - Vital Signs/Intake and Output Vital Signs (last 24 hours): Temp Pulse Resp BP Pulse Ox 98.5 F 65 20 126/79 98 02/11/17 08:00 02/11/17 08:00 02/11/17 08:00 02/11/17 08:00 02/11/17 08:00 Intake and Output: 02/11/17 02/11/17 06:59 18:59 Intake Total 240 Output Total 1800 Balance -1560 - Medications Medications: Current Medications Home Med (Home Med) 1 unit PO DIN [facility] Sodium Chloride (Sodium Chloride 0.9%) 1,000 mls @ 150 mls/hr IV .Q6H40M [facility] Last Admin: 02/11/17 05:34 Dose: Not Given Pantoprazole Sodium (Protonix Inj) 40 mg IVP Q12 [facility] Last Admin: 02/11/17 09:29 Dose: 40 mg - Labs Labs: 02/11/17 06:00 02/11/17 06:00 PT 11.9 SECONDS (9.4-12.5) 02/09/17 10:05 INR 1.08 (0.93-1.08) 02/09/17 10:05 APTT 23.1 Seconds (25.1-36.5) L 02/07/17 14:10 - Constitutional Appears: No Acute Distress - Eye Exam Eye Exam: Normal appearance. absent: Scleral icterus - ENT Exam ENT Exam: Mucous Membranes Moist - Neck Exam Neck Exam: Normal Inspection - Respiratory Exam Respiratory Exam: Clear to Ausculation Bilateral, NORMAL BREATHING PATTERN. absent: Respiratory Distress - Cardiovascular Exam Cardiovascular Exam: +S1, +S2 - GI/Abdominal Exam GI & Abdominal Exam: Soft, Normal Bowel Sounds. absent: Guarding, Tenderness, Rebound - Extremities Exam Extremities Exam: absent: Calf Tenderness, Pedal Edema - Neurological Exam Neurological Exam: Alert, Awake, Oriented x3 - Skin Skin Exam: Dry, Warm Assessment and Plan - Assessment and Plan (Free Text) Assessment: ASSESSMENT: GI Bleed s/p EGD /Colon: multiple colon polyps, not removed secondary to clots noted throughout colon, diverticulosis, no diverticlar bleeding seen, chronic gastritis, LA grade A esophagitis, duodenitits Anemia PLAN: advance diet to soft low residual diet, initially start low residual and slowly introduce fiber monitor h/h and for GI bleed decrease PPI to daily PO on DVT prophylaxis will need repeat colon for multiple polyps that were not removed in view of clots found throughout colon spoke to patient and family at bedside FU outpatient office on discharge Seen and discussed w/ Dr. Floyd. <Lizzette Floyd V - Last Filed: 02/11/17 20:50> Subjective - Date & Time of Evaluation Date of Evaluation: 02/11/17 Objective - Vital Signs/Intake and Output Vital Signs (last 24 hours): Temp Pulse Resp BP Pulse Ox 98.5 F 100 H 20 130/68 98 02/11/17 16:00 02/11/17 16:00 02/11/17 16:00 02/11/17 16:00 02/11/17 16:00 - Medications Medications: Current Medications Atorvastatin Calcium (Lipitor) 20 mg PO DIN [facility] Last Admin: 02/11/17 18:21 Dose: 20 mg Docusate Sodium (Colace) 100 mg PO BID [facility] Last Admin: 02/11/17 18:21 Dose: 100 mg Home Med (Home Med) 1 unit PO DAILY [facility] Last Admin: 02/11/17 11:46 Dose: 1 unit Sodium Chloride (Sodium Chloride 0.9%) 1,000 mls @ 150 mls/hr IV .Q6H40M [facility] Last Admin: 02/11/17 05:34 Dose: Not Given Pantoprazole Sodium (Protonix Inj) 40 mg IVP Q12 [facility] Last Admin: 02/11/17 09:29 Dose: 40 mg Pantoprazole Sodium (Protonix Ec Tab) 40 mg PO ACB [facility] - Labs Labs: 02/11/17 06:00 02/11/17 06:00 PT 11.9 SECONDS (9.4-12.5) 02/09/17 10:05 INR 1.08 (0.93-1.08) 02/09/17 10:05 APTT 23.1 Seconds (25.1-36.5) L 02/07/17 14:10 Attending/Attestation - Attestation I have personally seen and examined this patient.: Yes I have fully participated in the care of the patient.: Yes I have reviewed all pertinent clinical information, including history, physical exam and plan: Yes Notes (Text): This is an addendum to GI progress report dictated by Yoli Burgess APN.The patient was seen and examined earlier. Medical records, lab studies, imagings were reviewed. Last 24 hours events reviewed. Agreed with the above treatment plan as outlined in Yoli Burgess APN's notes the with the addition of the following tolerating the diet No further episodes of bleeding Abdomen soft no tenderness On Colace stool softener Advised to titrate the dose to keep the bowel movement loose or soft Discussed with the patient and also patient's daughter at length Patient has multiple polyps which were not removed patient family are fully aware of it would the consider elective repeat colonoscopy and polypectomy. Patient was advised to follow up regarding this 02/11/17 20:48
--- NOTE | 2017-02-11 11:09 | PN ---
SUBJECTIVE: The patient was seen and examined at bedside on the general medical miller. No acute events overnight. He remains afebrile and hemodynamically stable. The patient is tolerating a liquid diet without difficulties but has not yet had any bowel movements. Overall he reports significant improvement in his presenting symptoms and is eager for discharge to home. PHYSICAL EXAMINATION: VITAL SIGNS: Temperature 99.1, pulse 74, blood pressure 122/68, respiratory rate 18, oxygen saturation 97% on room air. GENERAL: No apparent distress. HEENT: PERRL, EOMI. No scleral icterus. Mild conjunctival pallor is noted. NECK: No JVD. No bruits. LUNGS: Clear to auscultation. CARDIOVASCULAR: Regular rate and rhythm. Normal S1 and S2. ABDOMEN: Normal active bowel sounds. Soft, nontender, and nondistended. No rigidity. No tympany. EXTREMITIES: No edema. NEUROLOGIC: Awake, alert, and oriented x3. No focal motor deficits. LABORATORY DATA: WBC 4.9, hemoglobin 9.1, hematocrit 27, and platelets 209. Chemistry reviewed and unremarkable. ASSESSMENT: The patient is a 71 year old man with a past medical history of colonic diverticulosis, hypertension and BPH who presented for evaluation of a several day history of bright red blood per rectum and passage of clots per rectum who was initially admitted to the ICU for management of lower GI bleed and symptomatic anemia who is now s/p colonoscopy and EGD with no evidence of active bleed who was subsequently transferred out of the ICU and demonstrating clinical improvement. PLAN: 1. Lower GI bleed, etiology likely secondary to diverticular bleed. Input from Dr. Floyd noted and greatly appreciated. We will advance diet as per Dr. Floyd. Continue to monitor CBC daily. 2. Symptomatic anemia secondary to lower GI bleed s/p multiple transfusions with PRBCs. Labs demonstrate stable H/H and there has been no further report of bloody bowel movements. We will continue to monitor CBC daily. 3. Hypertension. BP remains controlled off medications. Continue to monitor hemodynamics and resume antihypertensives as needed. 4. BPH. Continue Dutasteride/Tamsulosin 0.5/0.4 mg p.o. daily. 5. Hyperlipidemia. Continue Simvastatin 40 mg p.o. daily. 6. Prophylaxis. Continue Protonix 40 mg IV q.12 hours for GI prophylaxis. Continue SCDs for DVT prophylaxis. CODE STATUS: Full code. Angel Akers MD MTDD
[2017-02-11] MEDS: TAMSULOSIN 0.4 MG PO SCH (11:46)
[2017-02-11] MEDS: DUTASTERIDE PO SCH (11:46)
--- NOTE | 2017-02-11 11:47 | CP.PCM.PN ---
<CatyJeremiah - Last Filed: 02/11/17 11:31> Subjective - Date & Time of Evaluation Date of Evaluation: 02/11/17 Time of Evaluation: 11:31 - Subjective Subjective: Surgery Progress Note for Dr. Otero Pt seen and examined at bedside. No acute overnight events. Pt tolerating diet and passing flatus, but no BM or BRBPR. Pt denied CP, SOB, nausea, vomiting, abdominal pain, fever, chills, or VELASQUEZ. Objective - Vital Signs/Intake and Output Vital Signs (last 24 hours): Temp Pulse Resp BP Pulse Ox 98.5 F 65 20 126/79 98 02/11/17 08:00 02/11/17 08:00 02/11/17 08:00 02/11/17 08:00 02/11/17 08:00 Intake and Output: 02/11/17 02/11/17 06:59 18:59 Intake Total 240 Output Total 1800 Balance -1560 - Medications Medications: Current Medications Atorvastatin Calcium (Lipitor) 20 mg PO DIN ANAY Home Med (Home Med) 1 unit PO DIN [facility] Sodium Chloride (Sodium Chloride 0.9%) 1,000 mls @ 150 mls/hr IV .Q6H40M [facility] Last Admin: 02/11/17 05:34 Dose: Not Given Pantoprazole Sodium (Protonix Inj) 40 mg IVP Q12 [facility] Last Admin: 02/11/17 09:29 Dose: 40 mg Pantoprazole Sodium (Protonix Ec Tab) 40 mg PO ACB [facility] - Labs Labs: 02/11/17 06:00 02/11/17 06:00 PT 11.9 SECONDS (9.4-12.5) 02/09/17 10:05 INR 1.08 (0.93-1.08) 02/09/17 10:05 APTT 23.1 Seconds (25.1-36.5) L 02/07/17 14:10 - Constitutional Appears: No Acute Distress - Head Exam Head Exam: NORMAL INSPECTION - Eye Exam Eye Exam: Normal appearance - ENT Exam ENT Exam: Mucous Membranes Moist - Respiratory Exam Respiratory Exam: NORMAL BREATHING PATTERN. absent: Accessory Muscle Use, Respiratory Distress - Cardiovascular Exam Cardiovascular Exam: RRR. absent: Gallop, Rubs, Murmur - GI/Abdominal Exam GI & Abdominal Exam: Soft. absent: Distended, Guarding, Tenderness, Rebound - Extremities Exam Extremities Exam: Normal Inspection - Back Exam Back Exam: NORMAL INSPECTION - Neurological Exam Neurological Exam: Alert, Awake, Oriented x3 - Skin Skin Exam: Dry, Intact, Normal Color, Warm Assessment and Plan - Assessment and Plan (Free Text) Assessment: 71 yo M with h/o diverticulosis presents with lower GI bleed Plan: GI bleed likely 2/2 diverticulosis Hgb 9 -> 8 ->8.7 ->9.1 CT from [facility] [place]: Sigmoid Diverticulosis Colonoscopy: no active bleeding. diverticulosis, internal hemorrhoids, polyps. -Cont IVF -Diet advanced to soft -Transfuse as needed -GI consulted -Protonix IV 40mg BID -SCDs, Hold anticoagulation -Medical management per primary -Will DW Dr. Branden Byrne, PGY1 <Umberto Otero - Last Filed: 02/13/17 15:45> Objective - Vital Signs/Intake and Output Vital Signs (last 24 hours): Temp Pulse Resp BP Pulse Ox 98.1 F 59 L 18 136/67 98 02/12/17 08:00 02/12/17 08:00 02/12/17 08:00 02/12/17 08:00 02/12/17 10:00 - Labs Labs: 02/12/17 07:30 02/12/17 07:30 PT 11.9 SECONDS (9.4-12.5) 02/09/17 10:05 INR 1.08 (0.93-1.08) 02/09/17 10:05 APTT 23.1 Seconds (25.1-36.5) L 02/07/17 14:10 Attending/Attestation - Attestation I have personally seen and examined this patient.: Yes I have fully participated in the care of the patient.: Yes I have reviewed all pertinent clinical information, including history, physical exam and plan: Yes Notes (Text): Pt was seen and examined at bedside Agree with above note and assessment Pt is improving clinically Advance diet at tolerated HB stable c/w current mx DC plan Plan d.w pt in detail
[2017-02-11] MEDS ORDERED: TAMSULOSIN 0.4 MG PO SCH (17:00)
[2017-02-11] MEDS ORDERED: DUTASTERIDE PO SCH (17:00)
[2017-02-12] MEDS ORDERED: Pantoprazole 40 mg EC Tab PO SCH (07:30)
[2017-02-12 08:11] LABS: BASO # 0.02 K/mm3 (0.0-2.0); BASO % 0.4 % (0.0-3.0); EOS # 0.2 (0.0-0.7); EOS % 3.7 % (1.5-5.0); GRAN # 4.08 (1.4-6.5); GRAN % 72.6 % (50.0-68.0); HEMATOCRIT 30.3 % (42.0-52.0); LYMPH % 17.6 % (22.0-35.0); MEAN CELL VOLUME 88.6 fl (80.0-105.0); MEAN CORPUSCULAR HEMOGLOBIN 29.5 pg (25.0-35.0); MEAN CORPUSCULAR HGB CONC 33.3 g/dl (31.0-37.0); MEAN PLATELET VOLUME 10.2 fl (7.0-11.0); MONO # 0.3 (0.1-0.6); MONO % 5.7 % (1.0-6.0); RED CELL DISTRIBUTION WIDTH 15.2 % (11.5-14.5); WHITE BLOOD COUNT 5.6 10^3/ul (4.5-11.0)
[2017-02-12 09:01] LABS: ALB/GLOB RATIO 1.4 (1.1-1.8); ALKALINE PHOSPHATASE 52 U/L (38-126); ALT/SGPT 32 U/L (7-56); AST/SGOT 28 U/L (17-59); BILIRUBIN,TOTAL 0.4 mg/dL (0.2-1.3); BLOOD UREA NITROGEN 10 mg/dL (7-21); CALCIUM 9.6 mg/dL (8.4-10.5); CARBON DIOXIDE 28 mmol/L (21-33); CHLORIDE 104 mmol/L (98-107); GFR AFRICAN-AMERICAN > 60; GLUCOSE,RANDOM 150 mg/dL (70-110); POTASSIUM 4.2 mmol/L (3.6-5.0); SODIUM 141 mmol/L (132-148); TOTAL PROTEIN 6.4 g/dL (5.8-8.3)
--- NOTE | 2017-02-12 09:07 | CP.PCM.PN ---
<Jeremiah Byrne - Last Filed: 02/12/17 08:57> Subjective - Date & Time of Evaluation Date of Evaluation: 02/12/17 Time of Evaluation: 08:57 - Subjective Subjective: Surgery Progress Note for Dr. Otero Pt seen and examined at bedside. No acute overnight events. Pt states he had BM and denied BRBPR or melena. Pt denied CP, SOB, nausea, vomiting, diarrhea, abdominal pain, fever, chills, VELASQUEZ, dizziness, or fatigue. Objective - Vital Signs/Intake and Output Vital Signs (last 24 hours): Temp Pulse Resp BP Pulse Ox 97.8 F 64 19 108/65 97 02/12/17 00:01 02/12/17 00:01 02/12/17 00:01 02/12/17 00:01 02/12/17 00:01 Intake and Output: 02/12/17 02/12/17 06:59 18:59 Intake Total 1440 Output Total 0 Balance 1440 - Medications Medications: Current Medications Atorvastatin Calcium (Lipitor) 20 mg PO DIN [facility] Last Admin: 02/11/17 18:21 Dose: 20 mg Docusate Sodium (Colace) 100 mg PO BID [facility] Last Admin: 02/11/17 18:21 Dose: 100 mg Home Med (Home Med) 1 unit PO DAILY [facility] Last Admin: 02/11/17 11:46 Dose: 1 unit Sodium Chloride (Sodium Chloride 0.9%) 1,000 mls @ 150 mls/hr IV .Q6H40M [facility] Last Admin: 02/11/17 05:34 Dose: Not Given Pantoprazole Sodium (Protonix Ec Tab) 40 mg PO ACB [facility] - Labs Labs: 02/12/17 07:30 02/11/17 06:00 PT 11.9 SECONDS (9.4-12.5) 02/09/17 10:05 INR 1.08 (0.93-1.08) 02/09/17 10:05 APTT 23.1 Seconds (25.1-36.5) L 02/07/17 14:10 - Constitutional Appears: No Acute Distress - Head Exam Head Exam: NORMAL INSPECTION - Eye Exam Eye Exam: Normal appearance - ENT Exam ENT Exam: Normal Exam - Neck Exam Neck Exam: Normal Inspection - Respiratory Exam Respiratory Exam: NORMAL BREATHING PATTERN. absent: Accessory Muscle Use, Respiratory Distress - Cardiovascular Exam Cardiovascular Exam: RRR. absent: Gallop, Rubs, Murmur - GI/Abdominal Exam GI & Abdominal Exam: Soft. absent: Distended, Guarding, Tenderness, Rebound - Extremities Exam Extremities Exam: Normal Inspection - Back Exam Back Exam: NORMAL INSPECTION - Neurological Exam Neurological Exam: Alert, Awake, Oriented x3 - Skin Skin Exam: Dry, Intact, Normal Color, Warm Assessment and Plan - Assessment and Plan (Free Text) Assessment: 71 yo M with h/o diverticulosis presents with lower GI bleed Plan: GI bleed likely 2/[address] from [facility] [place]: Sigmoid Diverticulosis Colonoscopy: no active bleeding. diverticulosis, internal hemorrhoids, polyps. -Hgb improving at 10.1 -Diet as tolerated -Protonix PO -SCDs, Hold anticoagulation -Medical management per primary -Clear for DC from surgical standpoint DW Dr. Alphonse Byrne, PGY1 <Umberto Otero B - Last Filed: 02/13/17 15:59> Objective - Vital Signs/Intake and Output Vital Signs (last 24 hours): Temp Pulse Resp BP Pulse Ox 98.1 F 59 L 18 136/67 98 02/12/17 08:00 02/12/17 08:00 02/12/17 08:00 02/12/17 08:00 02/12/17 10:00 - Labs Labs: 02/12/17 07:30 02/12/17 07:30 PT 11.9 SECONDS (9.4-12.5) 02/09/17 10:05 INR 1.08 (0.93-1.08) 02/09/17 10:05 APTT 23.1 Seconds (25.1-36.5) L 02/07/17 14:10 Attending/Attestation - Attestation I have personally seen and examined this patient.: Yes I have fully participated in the care of the patient.: Yes I have reviewed all pertinent clinical information, including history, physical exam and plan: Yes Notes (Text): Pt was seen and examined at bedside Agree with above note and assessment Pt is asymptomatic, No bloody BM Advance diet at tolerated HB stable DC plan f/u with PMD Plan d.w pt in detail
[2017-02-12 09:12] VITALS: BP 136/67; PULSE 59; RESP 18; TEMP 98.1; O2SAT 98
[2017-02-12] MEDS: TAMSULOSIN 0.4 MG PO SCH (09:43)
[2017-02-12] MEDS: DUTASTERIDE PO SCH (09:43)
--- NOTE | 2017-02-12 13:43 | CP.PCM.PN ---
Subjective - Date & Time of Evaluation Date of Evaluation: 02/12/17 Time of Evaluation: 10:15 - Subjective Subjective: S&E at bedside, chart reviewed, no acute overnight events. Had Bm yesterday formed, no bleeding reported,tolerating oral intake, No N/V or abdominal pain. Daughter at bedside. Objective - Vital Signs/Intake and Output Vital Signs (last 24 hours): Temp Pulse Resp BP Pulse Ox 98.1 F 59 L 18 136/67 98 02/12/17 08:00 02/12/17 08:00 02/12/17 08:00 02/12/17 08:00 02/12/17 10:00 Intake and Output: 02/12/17 02/12/17 06:59 18:59 Intake Total 1440 540 Output Total 0 Balance 1440 540 - Labs Labs: 02/12/17 07:30 02/12/17 07:30 PT 11.9 SECONDS (9.4-12.5) 02/09/17 10:05 INR 1.08 (0.93-1.08) 02/09/17 10:05 APTT 23.1 Seconds (25.1-36.5) L 02/07/17 14:10 - Constitutional Appears: No Acute Distress - Head Exam Head Exam: NORMOCEPHALIC - Eye Exam Eye Exam: Normal appearance. absent: Scleral icterus - ENT Exam ENT Exam: Mucous Membranes Moist - Neck Exam Neck Exam: Normal Inspection - Respiratory Exam Respiratory Exam: Clear to Ausculation Bilateral, NORMAL BREATHING PATTERN. absent: Respiratory Distress - Cardiovascular Exam Cardiovascular Exam: +S1, +S2 - GI/Abdominal Exam GI & Abdominal Exam: Soft, Normal Bowel Sounds. absent: Guarding, Tenderness, Rebound - Extremities Exam Extremities Exam: absent: Calf Tenderness, Pedal Edema - Neurological Exam Neurological Exam: Alert, Awake, Oriented x3 - Skin Skin Exam: Dry, Warm Assessment and Plan - Assessment and Plan (Free Text) Assessment: ASSESSMENT: GI Bleed s/p EGD /Colon: multiple colon polyps, not removed secondary to clots noted throughout colon, diverticulosis, no diverticlar bleeding seen, chronic gastritis, LA grade A esophagitis, duodenitits Anemia PLAN: continue soft low residual diet, initially start low residual and slowly introduce fiber monitor h/h and for GI bleed PPI to daily PO on DVT prophylaxis will need repeat colon for multiple polyps that were not removed in view of clots found throughout colon spoke to patient and family at bedside FU outpatient office on discharge 2-3 weeks after seeing PCP, discuss w/ patient & daughter. D/C home today. Seen and discussed w/ Dr. Floyd.
--- NOTE | 2017-02-13 04:35 | PN ---
DATE: 02/12/2017 SUBJECTIVE: The patient was seen and evaluated earlier today. The patient's daughter was at bedside. The patient is tolerating the diet. The patient is desperate to go home. PHYSICAL EXAMINATION: VITAL SIGNS: Temperature is 98.1, pulse 59, blood pressure is 136/67, respirations 18, O2 saturations 98%. HEENT: Atraumatic. Anicteric. NECK: Supple. HEART: S1 and S2 heard. LUNGS: Bilateral air entry present. ABDOMEN: Soft. There is no tenderness. EXTREMITIES: No cyanosis. No clubbing. NEUROLOGIC: Alert and oriented. Moves all the extremities. LABORATORY DATA: Hemoglobin 10.1, hematocrit 30.3, WBC 5.6, platelets 268,000. Chemistry is essentially unremarkable. IMPRESSION: This is a 71-year-old patient admitted with a massive upper gastrointestinal, large lower gastrointestinal bleeding, probably secondary to the diverticular bleed. The patient did have multiple polyps, which were not removed. The diverticulosis is present throughout the colon. The patient mentioned to me that he has been taking Prevacid proton-pump inhibitor only on a p.r.n. basis, not on a regular basis. The patient was advised to follow up in the office regarding scheduling for the elective colonoscopy and removal of the polyps. This was also explained to the patient's daughter who has accompanied with the patient. Thank you very much for allowing me to participate in the care of the patient. Lizzette Floyd MD
--- NOTE | 2017-02-13 08:06 | DS ---
HISTORY OF PRESENT ILLNESS: The patient is a 71-year-old white male who is in room #573, bed 2. The patient presented to the emergency room complaining of a 4-day history of bright red blood per rectum and passage of clots. He was initially evaluated at [facility] and was discharged from the ED after evaluation with outpatient GI follow up as recommended. After discharge, he began to rebleed and presented to [facility] with a rectal bleed. He was initially seen by Dr. Josue King and was subsequently put on a medical floor. Of note, the patient did in fact have a colonoscopy that showed that the patient had diverticulosis. PHYSICAL EXAMINATION: VITAL SIGNS: Temperature is 98.1, pulse rate of 64, blood pressure 108/65 with subsequently went to 136/65, respiratory rate of 18 with an O2 saturation of 98% on room air. HEENT: Negative. NECK: Supple with full range of motion. LUNGS: Clear bilaterally. HEART: Regular rate and rhythm. No murmurs, rubs or gallops. ABDOMEN: Soft and nontender. Bowel sounds are normoactive. EXTREMITIES: Show no deformities and no edema. NEUROLOGIC: The patient is intact. LABORATORY DATA: CBC today has a hemoglobin of 10.1 with a hematocrit of 30.3, it was 9.1 and 26.9. Yesterday, chemistry is entirely within normal limits with the exception of a random glucose of 150. The patient is tolerating a p.o. diet, and he has had a bowel movement. DISCHARGE DIAGNOSES: 1. Lower gastrointestinal bleed. 2. Hypertension. 3. Hyperlipidemia. The patient was sent home on his previous medication and will be followed up in the office on a routine basis. Alvaro Akers MD
== END 2017-02-12 11:57 | disposition home or self-care (01) | DRG 379 ==
LOC: ED 13:29 → ERH 18:37 → CCU 21:42 → ICU 02-09 19:15 → 5RSO 02-10 12:56
PROVIDERS: ADMIT Internal Medicine; ATTEND Internal Medicine
PROC: 30233K1 Transfusion of Nonautologous Frozen Plasma into Peripheral Vein, Percutaneous Approach (ICD-10-PCS; 2017-02-07)
PROC: 30233N1 Transfusion of Nonautologous Red Blood Cells into Peripheral Vein, Percutaneous Approach (ICD-10-PCS; 2017-02-08)
PROC: 6A550Z2 Pheresis of Platelets, Single (ICD-10-PCS; 2017-02-08)
PROC: 0DJ08ZZ Inspection of Upper Intestinal Tract, Via Natural or Artificial Opening Endoscopic (ICD-10-PCS; principal; 2017-02-09 14:00)
PROC: 0DJD8ZZ Inspection of Lower Intestinal Tract, Via Natural or Artificial Opening Endoscopic (ICD-10-PCS; 2017-02-09 14:00)
DX: K57.31 Diverticulosis of large intestine without perforation or abscess with bleeding (principal); D50.0 Iron deficiency anemia secondary to blood loss (chronic); N28.1 Cyst of kidney, acquired; K76.0 Fatty (change of) liver, not elsewhere classified; D12.2 Benign neoplasm of ascending colon; D12.4 Benign neoplasm of descending colon; F17.210 Nicotine dependence, cigarettes, uncomplicated; K21.0 Gastro-esophageal reflux disease with esophagitis; K29.50 Unspecified chronic gastritis without bleeding; K57.30 Diverticulosis of large intestine without perforation or abscess without bleeding; D12.5 Benign neoplasm of sigmoid colon; D35.00 Benign neoplasm of unspecified adrenal gland; N40.0 Benign prostatic hyperplasia without lower urinary tract symptoms; Z79.899 Other long term (current) drug therapy; Z86.010 Personal history of colon polyps; I10 Essential (primary) hypertension; E78.5 Hyperlipidemia, unspecified; R40.2412 Glasgow coma scale score 13-15, at arrival to emergency department